=== PATIENT | male | born 1960 | race Caucasian/White ===

== ENCOUNTER → 2020-03-28 17:49 | Outpatient (BNVA) | payer BC, SELFPAY | DX: R05 Cough (principal); J44.1 Chronic obstructive pulmonary disease with (acute) exacerbation | CPT/HCPCS: 87635 ==

== ENCOUNTER → 2020-06-21 08:33 | Outpatient (BNVA) | payer BC, SELFPAY | PROVIDERS: PCP Family Medicine; Visit Provider Urology | DX: N39.9 Disorder of urinary system, unspecified (principal); R33.9 Retention of urine, unspecified | CPT/HCPCS: 81003 ==

== ENCOUNTER → 2020-07-08 10:55 | Outpatient (BNVA) | payer BC, SELFPAY | PROVIDERS: PCP Family Medicine; Visit Provider Urology | DX: R33.9 Retention of urine, unspecified (principal) | CPT/HCPCS: 81003 ==

== ENCOUNTER 2023-11-22 07:49 | Emergency (ER) | payer BC, SELFPAY ==
[2023-11-22] VITALS (7 sets, daily range): BP systolic 130–179; BP diastolic 75–96; PULSE 56–66; RESP 14–18; TEMP 36.8; O2SAT 96–99; BMI 20.7
--- NOTE | 2023-11-22 08:12 | ECG_ITS ---
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 Measurements Intervals [place] Rate: 59 P: 48 [place]: 119 QRS: 15 QRSD: 98 T: 89 QT: 441 QTc: 437 Interpretive Statements SINUS BRADYCARDIA WITH SHORT [place] INTERVAL MINIMAL ST DEPRESSION [0.025+ mV ST DEPRESSION] No previous ECG available for comparison Electronically Signed On 11-22-2023 11:15:16 CDT by Chi Jaeger M.D. [id number]
--- NOTE | 2023-11-22 08:12 | XRR_ITS ---
PROCEDURE INFORMATION: Exam: XR Chest Exam date and time: 11/22/2023 8:30 AM Age: 62 years old Clinical indication: Cough and dyspnea; Additional info: Dyspnea/cough TECHNIQUE: Imaging protocol: Radiologic exam of the chest. Views: 1 view. COMPARISON: No relevant prior studies available. FINDINGS: Lungs: Unremarkable. No consolidation. Pleural spaces: Unremarkable. No pleural effusion. No pneumothorax. Heart/Mediastinum: Unremarkable. No cardiomegaly. Bones/joints: Unremarkable. XR/XR chest 1V portable [id number] IMPRESSION: No acute findings.
--- NOTE | 2023-11-22 08:12 | CTR_ITS ---
PROCEDURE INFORMATION: Exam: CT Abdomen And Pelvis With Contrast Exam date and time: 11/22/2023 10:04 AM Age: 62 years old Clinical indication: Abdominal pain; Localized; Lower; Additional info: Abd pain TECHNIQUE: Imaging protocol: Computed tomography of the abdomen and pelvis with contrast. Radiation optimization: All CT scans at this facility use at least one of these dose optimization techniques: automated exposure control; mA and/or kV adjustment per patient size (includes targeted exams where dose is matched to clinical indication); or iterative reconstruction. Contrast material: [id number]; Contrast volume: 100 ml; Contrast route: INTRAVENOUS (IV); COMPARISON: US renal BI with PV bladder 05/13/2020 10:47 AM RADIATION DOSE METRICS: Total DLP (mGy-cm): 330 FINDINGS: Liver: Normal. No mass. Gallbladder and biliary ducts: Normal. No calcified stones. No ductal dilation. Pancreas: Normal. No ductal dilation. Spleen: Normal. No splenomegaly. Adrenal glands: Normal. No mass. Kidneys and ureters: Bilateral pelvocaliectasis, left greater than right. There is mild prominence to the proximal left ureter. The urothelium of each renal pelvis in the proximal left ureter is slightly thickened and enhances slightly suggesting infection. Correlate clinically. Minimally heterogeneous enhancement of the kidneys, correlate clinically for pyelonephritis. Stomach and bowel: Unremarkable. No obstruction. No mucosal thickening. Appendix: No evidence of appendicitis. Intraperitoneal space: Unremarkable. No free air. No significant fluid collection. Vasculature: Unremarkable. No abdominal aortic aneurysm. Lymph nodes: Unremarkable. No enlarged lymph nodes. Urinary bladder: The urinary bladder is collapsed around a Garces catheter. Reproductive: Unremarkable as visualized. Bones/joints: Unremarkable. No acute fracture. Soft tissues: Unremarkable. CT/CT abdomen pelvis w con* [id number] IMPRESSION: Bilateral pelvocaliectasis, left greater than right with secondary findings suggesting infection.
--- NOTE | 2023-11-22 08:12 | W.ED.BACK ---
HPI - Back Pain/Injury General: Chief Complaint: Back Pain/Injury Stated Complaint: low back pains, abd pain, urine problems Time Seen by Provider: 11/22/23 07:56 History of Present Illness: 60-year-old male presents emergency room with low back pain and unexplained weight loss. Patient has had problems with BPH and is supposed to self cath he has not been doing as much recently. He has had increasing back pain with hematuria for the last few days. No fever sweats or chills no hematochezia no vomiting. Denies chest pain or shortness of breath no hemoptysis. He states he has actually been eating regularly he is not having early satiety. Associated symptoms: Reports hematuria; Deny abdominal pain, chills, dysuria, fever(s) or urinary urgency Related Data Home Medications Medication Instructions Recorded Confirmed naproxen sodium 220 mg tablet See Rx Instructions .Route 11/22/23 11/22/23 (Aleve) .COMPLEX PRN Pain Previous Rx's Medication Instructions Recorded ciprofloxacin HCl 500 mg tablet 500 mg PO BID #20 tabs 11/22/23 (Cipro) Allergies Allergy/AdvReac Type Severity Reaction Status Date / Time Penicillins Allergy ALGY-Rash Verified 07/08/20 10:45 Review of Systems Const: Denies: fever(s) or chills Card: Denies: chest pain Resp: Denies: dyspnea GI: Denies: abdominal pain : Reports: flank pain, difficulty urinating, urinary dribbling and hematuria; Denies: dysuria, urinary frequency or urinary urgency Musc: Denies: neck pain or back pain Skin/Breast: Denies: rash PFSH ED PFSH: Medical History Urinary frequency Urinary retention Surgical History Hx of tonsillectomy Family History Mother , at 64 Lung cancer Father , at 62 Chronic kidney disease (CKD) Cancer Social History Smoking and tobacco/nicotine status: current every day tobacco/nicotine user Alcohol intake: current Alcohol type: beer Substance/Drug Use: never Marital status: Current occupational status: employed Physical Exam Const: COMMON NORMALS: no acute distress GENERAL APPEARANCE: cooperative and comfortable ORIENTATION/CONSCIOUSNESS: Yes awake, Yes oriented to person, Yes oriented to place and Yes oriented to time HENMT: COMMON NORMALS: normocephalic, atraumatic and hearing grossly normal bilaterally HEAD & SCALP: normocephalic and atraumatic Resp: COMMON NORMALS: normal respiratory effort, No retractions, No use of accessory muscles and clear to auscultation bilaterally AUSCULTATION: clear to auscultation bilaterally Cardio: COMMON NORMALS: regular rate, regular rhythm and No murmurs present (Cardio) RATE: regular rate RHYTHM: regular rhythm GI: COMMON NORMALS: Soft to palpation and No hepatosplenomegaly present AUSCULTATION: Yes normoactive bowel sounds PALPATION: Yes Soft to palpation, No Tenderness to palpation present (GI), No Guarding due to palpation present (GI) and Yes No hepatosplenomegaly present Extremity: COMMON NORMALS: normal to inspection, capillary refill normal, no clubbing, cyanosis or edema, no calf tenderness and no pedal edema Neuro: SENSORIUM/ORIENTATION: Yes oriented to person, Yes oriented to place and Yes oriented to time Skin: COMMON NORMALS: no rashes or lesions noted GENERAL SKIN EXAM: no rashes or lesions noted Course Vital Signs: Vital signs: Vital Signs Temperature 98.3 F 11/22/23 07:58 Pulse Rate 58 L 11/22/23 11:54 Respiratory Rate 14 11/22/23 11:54 Blood Pressure 130/75 11/22/23 11:54 Pulse Oximetry 97 11/22/23 11:54 Oxygen Delivery Me thod Room Air 11/22/23 10:40 MDM - Back Pain/Injury Medical Decision Making Urinary retention with signs of cystitis. Patient also has signs of mild pyelonephritis clinically and on imaging. Recommended observation for IV antibiotics. Patient prefers to go home he states he is feeling much better after his catheter was placed and his bladder was drained. Will discharge home on Cipro. Will make arrangements for him to follow-up with urology. She also should follow-up with primary care regarding his unexplained weight loss he will need further evaluation for this Medical Records I reviewed the patient's medical records. Labs I reviewed the patient's lab results. 11/22/23 08:26 11/22/23 09:14 Radiology Impressions Abdomen/Pelvis CT 11/22/23 08:12 IMPRESSION: Bilateral pelvocaliectasis, left greater than right with secondary findings suggesting infection. Chest X-Ray 11/22/23 08:12 IMPRESSION: No acute findings. Laboratory Results WBC 9.55 10^3/uL (3.29-11.43) 11/22/23 08:26 RBC 5.03 10^6/uL (3.85-5.65) 11/22/23 08:26 Hgb 14.40 g/dL (11.27-16.99) 11/22/23 08:26 Hct 42.8 % (37-53) 11/22/23 08:26 MCV 85.1 fl (82-101) 11/22/23 08:26 MCH 28.6 pg (27-33) 11/22/23 08:26 MCHC 33.6 g/dL (30-55) 11/22/23 08:26 RDW 17.2 % (12.1-15.1) H 11/22/23 08:26 Plt Count 231 10^3/cmm (157-399) 11/22/23 08:26 MPV 12.2 fL (7.4-10.4) H 11/22/23 08:26 Neut % (Auto) 70.3 % 11/22/23 08:26 Lymph % (Auto) 16.3 % 11/22/23 08:26 [place] % (Auto) 8.8 % 11/22/23 08:26 Eos % (Auto) 3.2 % 11/22/23 08:26 Baso % (Auto) 0.9 % 11/22/23 08:26 Neut # (Auto) 6.70 10^3/uL (1.8-7.7) 11/22/23 08:26 Lymph # (Auto) 1.6 10^3/uL (0.8-4.8) 11/22/23 08:26 [place] # (Auto) 0.8 10^3/uL (0.2-0.9) 11/22/23 08:26 Eos # (Auto) 0.3 10^3/uL (0.0-0.8) 11/22/23 08:26 Baso # (Auto) 0.1 10^3/uL (0.0-0.1) 11/22/23 08:26 Nucleated RBC % (auto) 0 % 11/22/23 08:26 Nucleated RBCs # 0.0 /100WBC 11/22/23 08:26 Sodium 139 mmol/L (136-145) 11/22/23 09:14 Potassium 5.0 mmol/L (3.5-5.1) 11/22/23 09:14 Chloride 105 mmol/L (98-107) 11/22/23 09:14 Carbon Dioxide 26 mmol/L (22-29) 11/22/23 09:14 Anion Gap 13.0 (5-19) 11/22/23 09:14 BUN 15 mg/dL (8-23) 11/22/23 09:14 Creatinine 1.0 mg/dL (0.7-1.2) 11/22/23 09:14 GFR Calculation 75.7 mL/min (90-130) L 11/22/23 09:14 Glucose 101 mg/dL (65-115) 11/22/23 09:14 Calculated Osmolality 289 mOsm/kg (285-295) 11/22/23 09:14 Lactic Acid 0.8 mmol/L (0.5-2.2) 11/22/23 09:54 Calcium 8.7 mg/dL (8.5-10.5) 11/22/23 09:14 Total Bilirubin 0.3 mg/dL (0.15-1.2) 11/22/23 09:14 AST 14 U/L (0-40) 11/22/23 09:14 ALT 10 U/L (0-41) 11/22/23 09:14 Alkaline Phosphatase 75 U/L (40-130) 11/22/23 09:14 Creatine Kinase 78 U/L (39-308) 11/22/23 09:14 Total Protein 6.9 g/dL (6.6-8.7) 11/22/23 09:14 Albumin 3.8 g/dL (3.5-5.2) 11/22/23 09:14 Globulin 3.1 g/dL (1.3-4.6) 11/22/23 09:14 Lipase 26 U/L (13-60) 11/22/23 09:14 Urine Color Yellow (Yellow) 11/22/23 08:45 Urine Appearance Cloudy (CLEAR) A 11/22/23 08:45 Urine pH 8.5 (5-7) A 11/22/23 08:45 Ur Specific [place] 1.010 (1.005-1.030) 11/22/23 08:45 Urine Protein Trace (Negative) A 11/22/23 08:45 Urine Glucose (UA) Negative (Normal) 11/22/23 08:45 Urine Ketones Negative (Negative) 11/22/23 08:45 Urine Blood 3+ (Negative) A 11/22/23 08:45 Urine Nitrate Positive (Negative) A 11/22/23 08:45 Urine Bilirubin Negative (Negative) 11/22/23 08:45 Urine Urobilinogen 1.0 mg/dL (Negative) 11/22/23 08:45 Ur Leukocyte Esterase 3+ (Negative) A 11/22/23 08:45 Urine RBC >100 /hpf (0-2) H 11/22/23 08:45 Urine WBC >100 /hpf (0-5) H 11/22/23 08:45 Ur Squamous Epith Cells 0-5 /hpf (0-5) 11/22/23 08:45 Amorphous Sediment Not Reportable 11/22/23 08:45 Urine Bacteria 4+ /hpf (NONE) H 11/22/23 08:45 Hyaline Casts 2.46 /lpf 11/22/23 08:45 All radiology interpretation(s) finalized by discharge Discharge Plan Discharge Patient Disposition: Home Clinical Impression: Pyelonephritis, Acute urinary retention, Unexplained weight loss Condition: Stable Prescriptions: New Cipro 500 mg tablet 500 mg PO BID Qty: 20 0RF No Action Aleve 220 mg Tablet See Rx Instructions .ROUTE .COMPLEX PRN (Reason: Pain) Rx Instructions: Take 2 tablets by mouth in the morning and 1 tablet at bedtime Discharge Orders: Discharge ED (Routine); Ordered 11/22/23 Ordered By: Vance Padilla Referrals: Naresh Moreira MD [Primary Care Provider] - Discharge Diet: Usual diet Discharge Activity: Resume usual activity Patient Instructions: Opioid Safety, Pain Management Activity Restrictions/Additional Instructions: Thank you for choosing [facility] for your healthcare needs today. It is very important that you follow up as instructed or that you return to the Emergency Department should you have concerns or if your condition changes or worsens in any way. You were seen emergency room with complaints of abdominal discomfort. On exam you are found to have a urinary retention. Garces catheter was placed which will need to stay in place for at least a week. You are also noted to have a bladder infection. Will start you on oral antibiotics 1 pill twice a day for 10 days. Case management make arrangements for you to follow-up with a urologist. 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
[2023-11-22 08:39] LABS: Basophils # 0.1 10^3/uL (0.0-0.1); Basophils % 0.9 %; Eosinophils # 0.3 10^3/uL (0.0-0.8); Eosinophils % 3.2 %; Hematocrit 42.8 % (37-53); Lymphocytes # 1.6 10^3/uL (0.8-4.8); Lymphocytes % 16.3 %; Mean Corpuscular HGB Conc 33.6 g/dL (30-55); Mean Corpuscular Hemoglobin 28.6 pg (27-33); Mean Corpuscular Volume 85.1 fl (82-101); Mean Platelet Volume 12.2 fL (7.4-10.4); Monocytes # 0.8 10^3/uL (0.2-0.9); Monocytes % 8.8 %; Neutrophils % 70.3 %; Nucleated Red Blood Cells % 0 %; Platelet Count 231 10^3/cmm (157-399); Red Blood Count 5.03 10^6/uL (3.85-5.65); Red Cell Distribution Width 17.2 % (12.1-15.1); White Blood Count 9.55 10^3/uL (3.29-11.43)
[2023-11-22] MEDS: sodium chloride 0.9% 1,000 ML 999 ML IV (08:52)
[2023-11-22 09:00] LABS: Charge for UA Resulting for Rev
[2023-11-22 09:05] LABS: Bilirubin Urine Negative (Negative); Blood Urine 3+ (Negative); Glucose Urine UA Negative (Normal); Ketones Urine Negative (Negative); Leukocyte Esterase Urine 3+ (Negative); Nitrate Urine Positive (Negative); Protein Urine Trace (Negative); Urine Appearance Cloudy (CLEAR); Urine Color Yellow (Yellow); pH Urine 8.5 (5-7)
[2023-11-22 09:09] LABS: Bacteria Urine 4+ /hpf; Hyaline Casts Urine 2.46 /lpf; RBC Urine >100 /hpf (0-2); Squamous Epithelial Cell Urine 0-5 /hpf (0-5); WBC Urine >100 /hpf (0-5)
[2023-11-22 09:23] LABS: Add Urine Culture? Yes
[2023-11-22 09:46] LABS: Alanine Aminotransferase 10 U/L (0-41); Albumin Level 3.8 g/dL (3.5-5.2); Alkaline Phosphatase 75 U/L (40-130); Aspartate Amino Transferase 14 U/L (0-40); Blood Urea Nitrogen 15 mg/dL (8-23); Calcium 8.7 mg/dL (8.5-10.5); Carbon Dioxide 26 mmol/L (22-29); Chloride 105 mmol/L (98-107); Creatine Phosphokinase 78 U/L (39-308); Creatinine Clr Calc Pharmacy 75.9508; Globulin 3.1 g/dL (1.3-4.6); Glomerular Filtration Rate 75.7 mL/min (90-130); Glucose 101 mg/dL (65-115); Lipase 26 U/L (13-60); Osmolality Calculated 289 mOsm/kg (285-295); Sodium 139 mmol/L (136-145); Total Bilirubin 0.3 mg/dL (0.15-1.2); Total Protein 6.9 g/dL (6.6-8.7)
[2023-11-22] MEDS: iohexol 350 mg/mL 500 mL Btl (per mL) IV (10:09)
[2023-11-22 10:27] LABS: Lactic Sepsis W/Reflex 0.8 mmol/L (0.5-2.2)
[2023-11-22] MEDS: meropenem 1,000 mg SDV 1000 MG IVP (10:36)
--- NOTE | 2023-11-22 11:12 | PC.NURSE ---
this nurse assumed pt care at 1100.
--- NOTE | 2023-11-22 11:55 | PC.NURSE ---
leg bag placed on patient prior to discharge.
== END 2023-11-22 11:44 | disposition home or self-care (01) ==
PROVIDERS: Emergency Provider Family Medicine; PCP Family Medicine
DX: N12 Tubulo-interstitial nephritis, not specified as acute or chronic (principal); R33.9 Retention of urine, unspecified; R63.4 Abnormal weight loss; Z68.20 Body mass index [BMI] 20.0-20.9, adult; Z71.0 Person encountering health services to consult on behalf of another person
CPT/HCPCS: 36415; 51702; 51798; 71045; 74177; 80053; 81003; 81015; 82550; 83605; 83690; 85025; 87040; 87086; 93005; 96361; 96374; 99285; J2185; J7030

== ENCOUNTER 2023-11-25 14:11 | Emergency (ER) | payer BC, SELFPAY ==
[2023-11-25 14:17] VITALS: BP 167/77; PULSE 87; RESP 18; TEMP 36.8; O2SAT 97; BMI 20.5
[2023-11-25 15:05] LABS: Basophils # 0.1 10^3/uL (0.0-0.1); Basophils % 0.6 %; Eosinophils # 0.7 10^3/uL (0.0-0.8); Eosinophils % 6.2 %; Hematocrit 45.6 % (37-53); Lymphocytes % 18.3 %; Mean Corpuscular HGB Conc 32.5 g/dL (30-55); Mean Corpuscular Hemoglobin 28.6 pg (27-33); Mean Platelet Volume 10.2 fL (7.4-10.4); Monocytes # 0.9 10^3/uL (0.2-0.9); Monocytes % 8.1 %; Neutrophils # 7.17 10^3/uL (1.8-7.7); Nucleated Red Blood Cells % 0 %; Platelet Count 334 10^3/cmm (157-399); Red Blood Count 5.18 10^6/uL (3.85-5.65); Red Cell Distribution Width 13.2 % (12.1-15.1); White Blood Count 10.87 10^3/uL (3.29-11.43)
[2023-11-25 15:24] LABS: Alanine Aminotransferase 12 U/L (0-41); Albumin Level 4.2 g/dL (3.5-5.2); Alkaline Phosphatase 79 U/L (40-130); Anion Gap 15.7 (5-19); Aspartate Amino Transferase 14 U/L (0-40); Blood Urea Nitrogen 13 mg/dL (8-23); Calcium 9.4 mg/dL (8.5-10.5); Carbon Dioxide 27 mmol/L (22-29); Chloride 100 mmol/L (98-107); Globulin 3.5 g/dL (1.3-4.6); Glomerular Filtration Rate 61.3 mL/min (90-130); Glucose 107 mg/dL (65-115); Lipase 32 U/L (13-60); Osmolality Calculated 287 mOsm/kg (285-295); Potassium 4.7 mmol/L (3.5-5.1); Sodium 138 mmol/L (136-145); Total Bilirubin 0.2 mg/dL (0.15-1.2); Total Protein 7.7 g/dL (6.6-8.7)
[2023-11-25 16:51] VITALS: PULSE 81; O2SAT 97
--- NOTE | 2023-11-25 17:36 | ED_ITS ---
HPI - Male Genitourinary 2 General: Chief complaint: Urogenital-Male Stated complaint: catheter pain - catheter is red Time Seen by Provider: 11/25/23 17:29 History of Present Illness: 62-year-old male patient comes in today for complaints of urinary pain and blood in his urine. Patient had a Garces catheter placed 3 days ago for urinary retention. Patient was started on antibiotics but came back today due to some increased discomfort and also noticing the blood in his urine. Patient reports no fever or nausea or vomiting. Patient appears nontoxic. Related Data Home Medications Medication Instructions Recorded Confirmed naproxen sodium 220 mg tablet See Rx Instructions .Route 11/22/23 11/22/23 (Aleve) .COMPLEX PRN Pain Previous Rx's Medication Instructions Recorded ciprofloxacin HCl 500 mg tablet 500 mg PO BID #20 tabs 11/22/23 (Cipro) Allergies Allergy/AdvReac Type Severity Reaction Status Date / Time Penicillins Allergy ALGY-Rash Verified 11/25/23 14:21 Review of Systems 2 General: Reports: 10 or more systems reviewed and unremarkable except in HPI and below : Reports: other (Garces catheter problem) PFSH ED 2 PFSH: Medical History Urinary frequency Urinary retention Surgical History Hx of tonsillectomy Family History Mother , at 64 Lung cancer Father , at 62 Chronic kidney disease (CKD) Cancer Social History Smoking and tobacco/nicotine status: current every day tobacco/nicotine user Alcohol intake: current Alcohol type: beer Substance/Drug Use: never Marital status: Current occupational status: employed Physical Exam 2 Const: COMMON NORMALS: alert HENMT: COMMON NORMALS: normocephalic HEAD & SCALP: normocephalic MOUTH: Normal oral and palatal mucosa present Neck/C-Spine: COMMON NORMALS: full ROM Resp: COMMON NORMALS: normal respiratory effort Cardio: COMMON NORMALS: regular rate RATE: regular rate GI: COMMON NORMALS: non-tender : COMMON NORMALS: Yes no CVA tenderness BLADDER/KIDNEY EXAM: Yes no CVA tenderness Back/Pelvis: COMMON NORMALS: no CVA tenderness Extremity: COMMON NORMALS: no pedal edema Neuro: SENSORIUM/ORIENTATION: Yes alert Skin: COMMON NORMALS: turgor normal GENERAL SKIN EXAM: turgor normal Course 2 Vital Signs: Vital signs: Vital Signs Temperature 98.2 F 11/25/23 14:17 Pulse Rate 87 11/25/23 14:17 Respiratory Rate 18 11/25/23 14:17 Blood Pressure 167/77 11/25/23 14:17 Pulse Oximetry 97 11/25/23 14:17 Oxygen Delivery Me thod Room Air 11/25/23 14:17 MDM - Male Medical Decision Making 62-year-old male patient comes in today for concerns of blood in his urine and pelvic pain. On exam patient has a tea-colored urine in his Garces catheter bag. After draining the [place] catheter bag patient drained clear fluid. Urine was collected and sent to lab. Vital signs are normal. Abdomen soft nontender. No CVA tenderness. Differential diagnosis includes urinary tract infection, cystitis, urethritis, dysfunctional Garces catheter. CBC and CMP were unremarkable. Urinalysis is unremarkable with significant improvement from prior exam. Patient reported pain relief prior to discharge. Patient was discharged home with recommendations for further treatment and follow-up. Lab Data 11/25/23 14:58 11/25/23 14:58 Laboratory Results WBC 10.87 10^3/uL (3.29-11.43) 11/25/23 14:58 RBC 5.18 10^6/uL (3.85-5.65) 11/25/23 14:58 Hgb 14.80 g/dL (11.27-16.99) 11/25/23 14:58 Hct 45.6 % (37-53) 11/25/23 14:58 MCV 88.0 fl (82-101) 11/25/23 14:58 MCH 28.6 pg (27-33) 11/25/23 14:58 MCHC 32.5 g/dL (30-55) 11/25/23 14:58 RDW 13.2 % (12.1-15.1) 11/25/23 14:58 Plt Count 334 10^3/cmm (157-399) 11/25/23 14:58 MPV 10.2 fL (7.4-10.4) 11/25/23 14:58 Neut % (Auto) 66.0 % 11/25/23 14:58 Lymph % (Auto) 18.3 % 11/25/23 14:58 [place] % (Auto) 8.1 % 11/25/23 14:58 Eos % (Auto) 6.2 % 11/25/23 14:58 Baso % (Auto) 0.6 % 11/25/23 14:58 Neut # (Auto) 7.17 10^3/uL (1.8-7.7) 11/25/23 14:58 Lymph # (Auto) 2.0 10^3/uL (0.8-4.8) 11/25/23 14:58 [place] # (Auto) 0.9 10^3/uL (0.2-0.9) 11/25/23 14:58 Eos # (Auto) 0.7 10^3/uL (0.0-0.8) 11/25/23 14:58 Baso # (Auto) 0.1 10^3/uL (0.0-0.1) 11/25/23 14:58 Nucleated RBC % (auto) 0 % 11/25/23 14:58 Nucleated RBCs # 0.0 /100WBC 11/25/23 14:58 Sodium 138 mmol/L (136-145) 11/25/23 14:58 Potassium 4.7 mmol/L (3.5-5.1) 11/25/23 14:58 Chloride 100 mmol/L (98-107) 11/25/23 14:58 Carbon Dioxide 27 mmol/L (22-29) 11/25/23 14:58 Anion Gap 15.7 (5-19) 11/25/23 14:58 BUN 13 mg/dL (8-23) 11/25/23 14:58 Creatinine 1.2 mg/dL (0.7-1.2) 11/25/23 14:58 GFR Calculation 61.3 mL/min (90-130) L 11/25/23 14:58 Glucose 107 mg/dL (65-115) 11/25/23 14:58 Calculated Osmolality 287 mOsm/kg (285-295) 11/25/23 14:58 Calcium 9.4 mg/dL (8.5-10.5) 11/25/23 14:58 Total Bilirubin 0.2 mg/dL (0.15-1.2) 11/25/23 14:58 AST 14 U/L (0-40) 11/25/23 14:58 ALT 12 U/L (0-41) 11/25/23 14:58 Alkaline Phosphatase 79 U/L (40-130) 11/25/23 14:58 Total Protein 7.7 g/dL (6.6-8.7) 11/25/23 14:58 Albumin 4.2 g/dL (3.5-5.2) 11/25/23 14:58 Globulin 3.5 g/dL (1.3-4.6) 11/25/23 14:58 Lipase 32 U/L (13-60) 11/25/23 14:58 Urine Color Yellow (Yellow) 11/25/23 17:37 Urine Appearance Cloudy (CLEAR) A 11/25/23 17:37 Urine pH 6.5 (5-7) 11/25/23 17:37 Ur Specific [place] 1.004 (1.005-1.030) L 11/25/23 17:37 Urine Protein Trace (Negative) A 11/25/23 17:37 Urine Glucose (UA) Negative (Normal) 11/25/23 17:37 Urine Ketones Negative (Negative) 11/25/23 17:37 Urine Blood 3+ (Negative) A 11/25/23 17:37 Urine Nitrate Negative (Negative) 11/25/23 17:37 Urine Bilirubin Negative (Negative) 11/25/23 17:37 Urine Urobilinogen 0.2 mg/dL (Negative) 11/25/23 17:37 Ur Leukocyte Esterase 1+ (Negative) A 11/25/23 17:37 Urine RBC 0-2 /hpf (0-2) 11/25/23 17:37 Urine WBC 0-5 /hpf (0-5) 11/25/23 17:37 Ur Squamous Epith Cells 0-5 /hpf (0-5) 11/25/23 17:37 Amorphous Sediment Not Reportable 11/25/23 17:37 Urine Bacteria None seen /hpf (NONE) 11/25/23 17:37 Hyaline Casts 0-4 /lpf H 09/12/24 17:37 No radiology studies performed this visit Discharge Plan Discharge Patient Disposition: Home Clinical Impression: Complication of Garces catheter Qualifiers: Encounter type: initial encounter Qualified Code(s): T83.9XXA - Unspecified complication of genitourinary prosthetic device, implant and graft, initial encounter Condition: Stable Prescriptions: No Action Aleve 220 mg Tablet See Rx Instructions .ROUTE .COMPLEX PRN (Reason: Pain) Rx Instructions: Take 2 tablets by mouth in the morning and 1 tablet at bedtime Cipro 500 mg tablet 500 mg PO BID Qty: 20 0RF Discharge Orders: Discharge ED (Routine); Ordered 11/25/23 Ordered By: Scar Cummings Referrals: Naresh Moreira MD [Primary Care Provider] - Discharge Diet: Usual diet Discharge Activity: Increase activity as tolerated Patient Instructions: Garces Catheter Placement and Care (ED) Activity Restrictions/Additional Instructions: Avoid any pulling or traction on the Garces catheter as it may cause bleeding of the bladder or prostate. Make sure to drink plenty of water and fluids. Follow-up with primary care or urology for further recommendations. Return to ED for new concerns. Coding Level of Care Code ED Robot Programmer for Odalys Espinosa
[2023-11-25 17:48] LABS: Bilirubin Urine Negative (Negative); Blood Urine 3+ (Negative); Glucose Urine UA Negative (Normal); Ketones Urine Negative (Negative); Leukocyte Esterase Urine 1+ (Negative); Nitrate Urine Negative (Negative); Protein Urine Trace (Negative); Specific Gravity, Urine 1.004 (1.005-1.030); Urine Appearance Cloudy (CLEAR); Urine Color Yellow (Yellow); Urobilinogen Urine 0.2 mg/dL (Negative); pH Urine 6.5 (5-7)
[2023-11-25 17:52] LABS: Add Urine Microscopic? YES; Bacteria Urine None Seen /hpf; Hyaline Casts Urine 0-4 /lpf; RBC Urine 0-2 /hpf (0-2); Squamous Epithelial Cell Urine 0-5 /hpf (0-5); WBC Urine 0-5 /hpf (0-5)
[2023-11-25 17:58] LABS: Add Urine Culture? Yes
[2023-11-25 18:37] VITALS: BP 143/83; PULSE 77; O2SAT 98
== END 2023-11-25 18:39 | disposition home or self-care (01) ==
PROVIDERS: Emergency Medicine; Emergency Provider Nurse Practitioner Family; PCP Family Medicine
DX: T83.9XXA Unspecified complication of genitourinary prosthetic device, implant and graft, initial encounter (principal); Z72.0 Tobacco use
CPT/HCPCS: 36415; 80053; 81001; 83690; 85025; 87086; 99283

== ENCOUNTER 2023-12-14 07:32 | Emergency (ER) | payer BC, SELFPAY ==
[2023-12-14 07:42] VITALS: BP 169/84; PULSE 93; RESP 18; TEMP 36.8; O2SAT 98; BMI 21.1
--- NOTE | 2023-12-14 07:51 | ED_ITS ---
HPI - Male Genitourinary 2 General: Chief complaint: Urogenital-Male Stated complaint: needs perry cathether removed Time Seen by Provider: 12/14/23 07:51 History of Present Illness: 60-year-old male presents emergency room as well as a catheter in place he has had it for 3 weeks the bag has been leaking some he is very frustrated he would like to have it added out by now. He did not get a follow-up with urology unfortunately. He was treated for cystitis he had follow-up shortly after that in the ER and his urine had cleared this is a few days after he was initially placed. He has not been taking any tamsulosin when he is completed his course of antibiotics denies fever sweats or chills his biggest complaint is he just wants the Perry out Associated symptoms: Deny dysuria Related Data Home Medications Medication Instructions Recorded Confirmed naproxen sodium 220 mg tablet See Rx Instructions .Route 11/22/23 12/14/23 (Aleve) .COMPLEX PRN Pain Previous Rx's Medication Instructions Recorded ciprofloxacin HCl 500 mg tablet 500 mg PO BID #14 tabs 12/14/23 (Cipro) tamsulosin 0.4 mg capsule 0.8 mg (2 x 0.4 mg) PO Q24H #60 12/14/23 caps Allergies Allergy/AdvReac Type Severity Reaction Status Date / Time Penicillins Allergy ALGY-Rash Verified 11/25/23 14:21 Review of Systems 2 Const: Denies: fever(s) or chills Card: Denies: chest pain Resp: Denies: dyspnea GI: Denies: abdominal pain : Denies: dysuria, urinary frequency or urinary urgency Musc: Denies: neck pain or back pain Skin/Breast: Denies: rash PFSH ED 2 PFSH: Medical History Urinary frequency Urinary retention Surgical History Hx of tonsillectomy Family History Mother , at 64 Lung cancer Father , at 62 Chronic kidney disease (CKD) Cancer Social History (Reviewed 11/22/23 @ 08:12 by MARCELA Borjas Smoking and tobacco/nicotine status: current every day tobacco/nicotine user Alcohol intake: current Alcohol type: beer Substance/Drug Use: never Marital status: Current occupational status: employed Physical Exam 2 Const: COMMON NORMALS: no acute distress GENERAL APPEARANCE: cooperative and comfortable ORIENTATION/CONSCIOUSNESS: Yes awake, Yes oriented to person, Yes oriented to place and Yes oriented to time HENMT: COMMON NORMALS: normocephalic, atraumatic and hearing grossly normal bilaterally HEAD & SCALP: normocephalic and atraumatic Resp: COMMON NORMALS: normal respiratory effort, No retractions, No use of accessory muscles and clear to auscultation bilaterally AUSCULTATION: clear to auscultation bilaterally Cardio: COMMON NORMALS: regular rate, regular rhythm and No murmurs present (Cardio) RATE: regular rate RHYTHM: regular rhythm GI: COMMON NORMALS: Soft to palpation and No hepatosplenomegaly present A USCULTATION: Yes normoactive bowel sounds PALPATION: Yes Soft to palpation, No Tenderness to palpation present (GI), No Guarding due to palpation present (GI) and Yes No hepatosplenomegaly present Extremity: COMMON NORMALS: normal to inspection, capillary refill normal, no clubbing, cyanosis or edema, no calf tenderness and no pedal edema Neuro: SENSORIUM/ORIENTATION: Yes oriented to person, Yes oriented to place and Yes oriented to time Skin: COMMON NORMALS: no rashes or lesions noted GENERAL SKIN EXAM: no rashes or lesions noted Course 2 Vital Signs: Vital signs: Vital Signs Temperature 98.3 F 12/14/23 07:42 Pulse Rate 64 12/14/23 11:43 Respiratory Rate 18 12/14/23 11:43 Blood Pressure 123/82 12/14/23 11:43 Pulse Oximetry 99 12/14/23 11:43 Oxygen Delivery Me thod Room Air 12/14/23 07:42 MDM - Male Medical Decision Making Patient quite frustrated. Removal to after some discussion, agreed to allow us to check a urine we checked her urine and removed his Perry monitored for time recheck he has 250 of retained urine if he cannot void at this time he does not feel the urge was not able to empty. Discussed with him the concerns we have about developing urinary retention again. He does not wish to stay any further he does not wish catheter back and advised him if he has not urinated at all by around 4:00's afternoon he should return to be reevaluated. We did start him on some oral antibiotics Cipro 500 twice daily for 7 days will start on tamsulosin 1.8 nightly patient reports that previously at 0.4 he did not have any good results. Encouraged him to establish with a primary care doctor and with have case management get him set up for urology. Medical Records I reviewed the patient's medical records. Lab Data I reviewed the patient's lab results. 12/14/23 08:27 12/14/23 08: Laboratory Results WBC 8.81 10^3/uL (3.29-11.43) 12/14/23 08: RBC 4.81 10^6/uL (3.85-5.65) 12/14/23 08: Hgb 13.70 g/dL (11.27-16.99) 12/14/23 08: Hct 41.8 % (37-53) 12/14/23 08: MCV 86.9 fl (82-101) 12/14/23 08: MCH 28.5 pg (27-33) 12/14/23 08: MCHC 32.8 g/dL (30-55) 12/14/23 08: RDW 13.3 % (12.1-15.1) 12/14/23 08: Plt Count 271 10^3/cmm (157-399) 12/14/23 08: MPV 10.6 fL (7.4-10.4) H 12/14/23 08: Neut % (Auto) 62.7 % 12/14/23 08: Lymph % (Auto) 22.2 % 12/14/23 08: [place] % (Auto) 9.5 % 12/14/23 08: Eos % (Auto) 4.3 % 12/14/23: Baso % (Auto) 0.7 % 12/14/23 08: Neut # (Auto) 5.52 10^3/uL (1.8-7.7) 12/14/23 08: Lymph # (Auto) 2.0 10^3/uL (0.8-4.8) 12/14/23 08:27 [place] # (Auto) 0.8 10^3/uL (0.2-0.9) 12/14/23 08:27 Eos # (Auto) 0.4 10^3/uL (0.0-0.8) 12/14/23 08:27 Baso # (Auto) 0.1 10^3/uL (0.0-0.1) 12/14/23 08:27 Nucleated RBC % (auto) 0 % 12/14/23 08: Nucleated RBCs # 0.0 /100WBC 12/14/23 08:27 Sodium 140 mmol/L (136-145) 12/14/23 08:27 Potassium 4.3 mmol/L (3.5-5.1) 12/14/23 08:27 Chloride 104 mmol/L (98-107) 12/14/23 08:27 Carbon Dioxide 26 mmol/L (22-29) 12/14/23 08:27 Anion Gap 14.3 (5-19) 12/14/23 08:27 BUN 16 mg/dL (8-23) 12/14/23 08:27 Creatinine 1.0 mg/dL (0.7-1.2) 12/14/23 08:27 GFR Calculation 75.7 mL/min (90-130) L 12/14/23 08:27 Glucose 110 mg/dL (65-115) 12/14/23 08:27 Calculated Osmolality 292 mOsm/kg (285-295) 12/14/23 08:27 Calcium 9.0 mg/dL (8.5-10.5) 12/14/23 08:27 Total Bilirubin 0.3 mg/dL (0.15-1.2) 12/14/23 08:27 AST 17 U/L (0-40) 12/14/23 08:27 ALT 14 U/L (0-41) 12/14/23 08:27 Alkaline Phosphatase 76 U/L (40-130) 12/14/23 08:27 Total Protein 7.6 g/dL (6.6-8.7) 12/14/23 08:27 Albumin 4.2 g/dL (3.5-5.2) 12/14/23 08:27 Globulin 3.4 g/dL (1.3-4.6) 12/14/23 08:27 Urine Color Yellow (Yellow) 12/14/23 09:01 Urine Appearance Clear (CLEAR) 12/14/23 09:01 Urine pH 5.5 (5-7) 12/14/23 09:01 Ur Specific [place] 1.017 (1.005-1.030) 12/14/23 09:01 Urine Protein 1+ (Negative) A 12/14/23 09:01 Urine Glucose (UA) Negative (Normal) 12/14/23 09: Urine Ketones Negative (Negative) 12/14/23 09: Urine Blood 3+ (Negative) A 12/14/23 09: Urine Nitrate Positive (Negative) A 12/14/23 09: Urine Bilirubin Negative (Negative) 12/14/23 09: Urine Urobilinogen 1.0 mg/dL (Negative) 12/14/23 09:01 Ur Leukocyte Esterase 2+ (Negative) A 12/14/23 09: Urine RBC 15-25 /hpf (0-2) H 12/14/23 09:01 Urine WBC 15-25 /hpf (0-5) H 12/14/23 09:01 Ur Squamous Epith Cells 0-4 /hpf (0-5) H 12/14/23 09:01 Amorphous Sediment Not Reportable 12/14/23 09:01 Urine Bacteria 3+ /hpf (NONE) H 12/14/23 09:01 Urine Mucus 1+ /hpf 12/14/23 09:01 No radiology studies performed this visit Discharge Plan Discharge Patient Disposition: Home Clinical Impression: Urinary tract infection Condition: Stable Prescriptions: New ciprofloxacin HCl [Cipro] 500 mg tablet 500 mg PO BID Qty: 14 0RF tamsulosin 0.4 mg capsule 0.8 mg PO Q24H Qty: 60 0RF No Action naproxen sodium [Aleve] 220 mg Tablet See Rx Instructions .ROUTE .COMPLEX PRN (Reason: Pain) Rx Instructions: Take 2 tablets by mouth in the morning and 1 tablet at bedtime Discharge Orders: Discharge ED (Routine); Ordered 12/14/23 Ordered By: Vance Padilla Discharge Diet: Usual diet Discharge Activity: Increase activity as tolerated Patient Instructions: Urinary Tract Infection in Men (ED), Opioid Safety, Pain Management Activity Restrictions/Additional Instructions: Thank you for choosing [facility] for your healthcare needs today. It is very important that you follow up as instructed or that you return to the Emergency Department should you have concerns or if your condition changes or worsens in any way. After removing the catheter in the ER we monitored you for a time and you did have retention of around 250 mL of urine. If you have not been able to urinate by 3-4 o'clock's afternoon she should return to the emergency room to have a Perry catheter placed. In addition to this you were noted to have a bladder infection for which she was given ciprofloxacin 1 tablet twice a day for. Case management make arrangements for you to see a physician regarding your bladder issues. Coding Level of Care Code ED Service Developer for Odalys Espinosa
[2023-12-14 08:35] LABS: Basophils # 0.1 10^3/uL (0.0-0.1); Basophils % 0.7 %; Eosinophils # 0.4 10^3/uL (0.0-0.8); Eosinophils % 4.3 %; Hematocrit 41.8 % (37-53); Lymphocytes % 22.2 %; Mean Corpuscular HGB Conc 32.8 g/dL (30-55); Mean Corpuscular Hemoglobin 28.5 pg (27-33); Mean Corpuscular Volume 86.9 fl (82-101); Mean Platelet Volume 10.6 fL (7.4-10.4); Monocytes # 0.8 10^3/uL (0.2-0.9); Monocytes % 9.5 %; Neutrophils # 5.52 10^3/uL (1.8-7.7); Neutrophils % 62.7 %; Nucleated Red Blood Cells % 0 %; Platelet Count 271 10^3/cmm (157-399); Red Blood Count 4.81 10^6/uL (3.85-5.65); Red Cell Distribution Width 13.3 % (12.1-15.1); White Blood Count 8.81 10^3/uL (3.29-11.43)
[2023-12-14 08:53] LABS: Alanine Aminotransferase 14 U/L (0-41); Albumin Level 4.2 g/dL (3.5-5.2); Alkaline Phosphatase 76 U/L (40-130); Anion Gap 14.3 (5-19); Aspartate Amino Transferase 17 U/L (0-40); Blood Urea Nitrogen 16 mg/dL (8-23); Carbon Dioxide 26 mmol/L (22-29); Chloride 104 mmol/L (98-107); Creatinine Clr Calc Pharmacy 76.3438; Globulin 3.4 g/dL (1.3-4.6); Glomerular Filtration Rate 75.7 mL/min (90-130); Glucose 110 mg/dL (65-115); Osmolality Calculated 292 mOsm/kg (285-295); Potassium 4.3 mmol/L (3.5-5.1); Sodium 140 mmol/L (136-145); Total Bilirubin 0.3 mg/dL (0.15-1.2); Total Protein 7.6 g/dL (6.6-8.7)
[2023-12-14 09:12] LABS: Bilirubin Urine Negative (Negative); Blood Urine 3+ (Negative); Glucose Urine UA Negative (Normal); Ketones Urine Negative (Negative); Leukocyte Esterase Urine 2+ (Negative); Nitrate Urine Positive (Negative); Protein Urine 1+ (Negative); Specific Gravity, Urine 1.017 (1.005-1.030); Urine Appearance Clear (CLEAR); Urine Color Yellow (Yellow); pH Urine 5.5 (5-7)
[2023-12-14 09:38] LABS: UA Manual Slide Review YES; UA Slide Review UA Slide Review Perf
[2023-12-14 09:40] LABS: Add Urine Culture? Yes; Add Urine Microscopic? YES; Bacteria Urine 3+ /hpf; Mucus Urine 1+ /hpf; RBC Urine 15-25 /hpf (0-2); Squamous Epithelial Cell Urine 0-4 /hpf (0-5); WBC Urine 15-25 /hpf (0-5)
[2023-12-14 11:43] VITALS: BP 123/82; PULSE 64; RESP 18; O2SAT 99
--- NOTE | 2023-12-16 08:14 | DCPLANNER ---
faxed packet to [facility]
== END 2023-12-14 11:59 | disposition home or self-care (01) ==
PROVIDERS: Emergency Provider Family Medicine
DX: N39.0 Urinary tract infection, site not specified (principal)
CPT/HCPCS: 80053; 81001; 85025; 87077; 87086; 87186; 99283

== ENCOUNTER 2023-12-14 16:57 | Emergency (ER) | payer BC, SELFPAY ==
[2023-12-14 16:59] VITALS: BP 128/81; PULSE 100; RESP 15; TEMP 36.6; O2SAT 98; BMI 21.1
--- NOTE | 2023-12-14 17:38 | ED_ITS ---
HPI - Male Genitourinary General: Chief complaint: Urogenital-Male Stated complaint: unable to urinate Time Seen by Provider: 12/14/23 17:10 Source: patient Mode of arrival: ambulatory Limitations: no limitations History of Present Illness: 62-year-old male who was seen here [facility] today he had had urinary retention and had a Garces catheter removed and did not want placement states that since he has been home he has not been able to urinate at all and is having suprapubic tenderness. Denies any fever denies any other complaints Associated symptoms: Deny dysuria, nausea or vomiting Related Data Home Medications Medication Instructions Recorded Confirmed naproxen sodium 220 mg tablet See Rx Instructions .Route 11/22/23 12/14/23 (Aleve) .COMPLEX PRN Pain Previous Rx's Medication Instructions Recorded ciprofloxacin HCl 500 mg tablet 500 mg PO BID #14 tabs 12/14/23 (Cipro) tamsulosin 0.4 mg capsule 0.8 mg (2 x 0.4 mg) PO Q24H #60 12/14/23 caps Allergies Allergy/AdvReac Type Severity Reaction Status Date / Time Penicillins Allergy ALGY-Rash Verified 11/25/23 14:21 Review of Systems Const: Denies: fever(s), chills, body aches or change in appetite ENMT: Denies: throat pain or dental pain Card: Denies: chest pain Resp: Denies: dyspnea GI: Reports: abdominal pain; Denies: nausea, vomiting or diarrhea : Reports: difficulty urinating; Denies: dysuria Musc: Denies: neck pain or back pain Skin/Breast: Denies: rash Neuro: Denies: headache(s) PFSH ED PFSH: Medical History Urinary frequency Urinary retention Surgical History Hx of tonsillectomy Family History Mother , at 64 Lung cancer Father , at 62 Chronic kidney disease (CKD) Cancer Social History Smoking and tobacco/nicotine status: current every day tobacco/nicotine user Alcohol intake: current Alcohol type: beer Substance/Drug Use: never Marital status: Current occupational status: employed Physical Exam Const: COMMON NORMALS: no acute distress, patient oriented x3 and healthy appearing HENMT: COMMON NORMALS: normocephalic and atraumatic HEAD & SCALP: normocephalic and atraumatic Eye: COMMON NORMALS: Equal, round and reactive pupils present and EOMs intact bilaterally PUPIL: Yes Equal, round and reactive pupils present Neck/C-Spine: COMMON NORMALS: full ROM and supple Chest: COMMONS NORMALS: normal inspection of the chest Resp: COMMON NORMALS: normal respiratory effort Cardio: COMMON NORMALS: regular rate, regular rhythm and No murmurs present (Cardio) RATE: regular rate RHYTHM: regular rhythm GI: COMMON NORMALS: Normal to inspection, nondistended, normoactive bowel sounds present, Soft to palpation and no masses PALPATION: Yes Soft to palpation OTHER: Suprapubic tenderness Extremity: COMMON NORMALS: normal to inspection and full ROM Neuro: COMMON NORMALS: patient oriented x3, moves all extremities and no focal motor deficits Psych: COMMON NORMALS: mental status grossly normal, Normal thought process present and cooperative THOUGHT PROCESS: Normal thought process present Skin: COMMON NORMALS: no rashes or lesions noted and no wounds GENERAL SKIN EXAM: no rashes or lesions noted Course Vital Signs: Vital signs: Vital Signs Temperature 97.8 F 12/14/23 16:59 Pulse Rate 100 12/14/23 16:59 Respiratory Rate 15 12/14/23 16:59 Blood Pressure 128/81 12/14/23 16:59 Pulse Oximetry 98 12/14/23 16:59 Oxygen Delivery Me thod Room Air 12/14/23 16:59 MDM - Male Medical Decision Making Patient presents here with urinary retention he did have a large amount after the Garces placed will leave the Garces in with leg bag he has follow-up with urology Medical Records I reviewed the patient's medical records. No radiology studies performed this visit Discharge Plan Discharge Patient Disposition: Home Clinical Impression: Urinary retention Condition: Stable Prescriptions: No Action ciprofloxacin HCl [Cipro] 500 mg tablet 500 mg PO BID Qty: 14 0RF tamsulosin 0.4 mg capsule 0.8 mg PO Q24H Qty: 60 0RF naproxen sodium [Aleve] 220 mg Tablet See Rx Instructions .ROUTE .COMPLEX PRN (Reason: Pain) Rx Instructions: Take 2 tablets by mouth in the morning and 1 tablet at bedtime Discharge Orders: Discharge ED (Routine); Ordered 12/14/23 Ordered By: Kana Arevalo Discharge Diet: Advance as tolerated Discharge Activity: Resume usual activity Patient Instructions: Urinary Retention in Men (ED) Coding Level of Care Code ED Roofing Apprentice for Odalys Espinosa
[2023-12-14 18:18] VITALS: BP 131/75; PULSE 99; O2SAT 95
== END 2023-12-14 18:29 | disposition home or self-care (01) ==
PROVIDERS: Emergency Provider Emergency Medicine
DX: R33.9 Retention of urine, unspecified (principal)
CPT/HCPCS: 51702; 99282

== ENCOUNTER 2024-11-05 08:52 | Observation (INO) | payer BC, SELFPAY ==
--- OUTSIDE RECORDS SUMMARY | 2024-08-16 03:30 | XMS_ITS ---
Author Organization [id number] Address [address] [place] [address] Care Team Providers Care [employer]cery Store Courtesy Clerk Name Role Phone ADA GONZALEZ Unavailable [phone] EVIE MARK Unavailable [phone] REASON FOR VISIT Cysto/ SPtube Placement Encounters Encounter Location Date Provider Diagnosis [facility] [address] [facility] [place] [address] 08/16/2024 EVIE MARK Plan Of Treatment Next Appt Details Provider Name:SHAMIR MARI, 11/06/2024 10:00:00 AM, [address] [facility] [place], [address], Provider Name:SHAMIR MARI, 03/13/2025 01:00:00 PM, [address] [facility] [place], [address], Progress Notes * Pineda BARRIENTOSDOB:1960 ([age] yo M)Acc No.[id number]:08/16/2024 Patient: Pineda LONDON Provider: Ana MARK MD :1960 A ge:63 Y S ex:Male Date:08/16/2024 Address:[address] [place], [place] [id number] * Billing Information: * Visit Code: * Procedure Codes: * Electronic signature of AUST IN MD DEEDEE on 11/05/2024 at 08:58 AM CDT Sign off status: Pending * Provider: Ana MARK MD Date: 0 08/16/2024 Generated for Printi ng/Famauriciog/eTransmitting on: 0 11/05/2024 08:58 AM CDT
[2024-11-05] VITALS (7 sets, daily range): BP systolic 107–147; BP diastolic 60–89; PULSE 61–103; RESP 15–18; TEMP 36.8–37.5; O2SAT 94–98; BMI 24.3; BMI 20.7
--- OUTSIDE RECORDS SUMMARY | 2024-11-05 08:58 | XMS_ITS | Patient Health Record ---
Author Organization [facility] Address [address] [facility] [address] Support Name Relationship Address Phone Pineda Tijerina Guarantor Unknown Unavailable Allergies Allergen (clinical drug ingredient) Drug/Non Drug Allergy documented on EMR Reaction Allergy Type Onset Date Status penicillin G Penicillin G Pot in Dextrose rash Drug Allergy Active Reason For Referral No Information Medications Medication SIG (Take, Route, Frequency, Duration) Notes Start Date End Date Status Azithromycin 250 MG Tablet 2 tablets on the first day, then 1 tablet daily for 4 days Orally Once a day; Duration: 5 day(s) 05/12/2017 Active Cheratussin AC 100-10 MG/5ML Syrup 5 ml Orally every 4 hrs; Duration: 6 days 05/12/2017 Active predniSONE 10 MG Tablet 1 tablet Orally Twice a day; Duration: 5 days 05/12/2017 Active Social History Social History Additional Details Category Social Info Options Details zzMigrated Social History Migrated Social History 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
--- OUTSIDE RECORDS SUMMARY | 2024-11-05 08:58 | XMS_ITS | Patient Health Record ---
Author Organization [employer] Address [address] [place] [address] Care Team Providers Care Hypoid Gear Generator Name Role Phone ADA GONZALEZ Unavailable [phone] ASHLEY HUANG Unavailable [phone] EVIE FREGOSO Unavailable [phone] Allergies Allergen (clinical drug ingredient) Drug/Non Drug Allergy documented on EMR Reaction Allergy Type Onset Date Status Penicillin Unknown Drug Allergy Active Results Component Value Reference Range Notes Urinalysis, Routine Reviewed date:07/24/2024 01:08:49 PM Interpretation: Performing Lab: Notes/Report: Urine-Color yellow Appearance cloudy Glucose - Bilirubin - Ketones - Specific [place] 1.015 Occult Blood - pH 6.0 Urine Protein - Urobilinogen,Semi-Qn - Nitrite, Urine - WBC Esterase 3+ BUN Proc TX Reviewed date:01/24/2024 01:14:46 PM Interpretation: Performing Lab: Notes/Report: BUN 11 7-21 MG/DL Testing perform ed at: [address] [place] [address] CLIA ID [id number] Creat Proc TX Reviewed date:01/24/2024 01:14:41 PM Interpretation: Performing Lab: Notes/Report: Creat .87 .57-1.17 MG/DL D-tluegb-r-benzoquinone imine (NAPQI) is a metabolite of acetaminophen, NAPQI concentrations of apparoximately 10 mg/L correlation to toxic levels of acetaminophen demonstrates a greater than or equil to 10% change in results. NAPQI concentrations greater than this may lead to falsely depressed results for patient samples. Use of this assay is not recommended for patients undergoing treatment with phenindione, due to the potential for falsely depressed results. Testing performed at: [address] [place] [address] CLIA ID [id number] PSA-Screening Reviewed date:01/24/2024 01:14:06 PM Interpretation: Performing Lab: Notes/Report: PSA .62 .00-4.00 NG/ML PSA concentrations, regardless of the value, should not be interpreted as definitive evidence for the presence or absence of prostate cancer. Testing performed at: [address] [place] [id number] Abdomen, Pelvis w/ + w/o Contrast--[id number] Reviewed date:01/24/2024 03:39:36 PM Interpretation: Performing Lab: Notes/Report: See Below For Report CT Abdomen, Pelvis w/ + w/o Contrast Read See Below For Report Basic Metabolic Panel Reviewed date:07/31/2024 04:01:20 PM Interpretation: Performing Lab: Notes/Report: Testing performed at [facility], [address] [place], [place] [address] [address]. CLIA ID#: [id number] F-tnzigh-e-benzoquinone imine (NAPQI) is a metabolite of acetaminophen, NAPQI concentrations of apparoximately 10 mg/L correlation to toxic levels of acetaminophen demonstrates a greater than or equil to 10% change in results. NAPQI concentrations greater than this may lead to falsely depressed results for patient samples. Calculation performed from GFR calculator provided by the [employer]. Glomerular Filtration rate(GRF) is the best overall index of kidney function. Normal GFR varies according to age,sex, body size, and declines with age. The National Kid[employer] Foundation recommends using the CKD-EPI Creatinine Equation(2020) to estimate GFR. Testing performed at: [address] [place] [address] CLIA ID [id number] Use of this assay is not recommended for patients undergoing treatment with phenindione, due to the potential for falsely depressed results. Sodium 141 136-145 MMOL/L Potassium 4.8 3.5-5.1 MMOL/L Chloride 107 98-107 MMOL/L CO2 28.6 20.0-31.0 MMOL/L Glucose Serum 83 71-110 MG/DL BUN 16 7-21 MG/DL Creat 1.04 .57-1.17 MG/DL GFR 80.1 Anion Gap 10 5-15 BUN/Creat Ratio 15.4 12.0-20.0 % Calcium 9.4 8.7-10.4 MG/DL Osmo Serum,Calculated 292 280-300 MOSM/KG Basic Metabolic Panel Reviewed date:08/15/2024 04:22:21 PM Interpretation: Performing Lab: Notes/Report: Testing performed at [facility], [address] [place], [place] [address] [address]. CLIA ID#: [id number] V-vikoxc-c-benzoquinone imine (NAPQI) is a metabolite of acetaminophen, NAPQI concentrations of apparoximately 10 mg/L correlation to toxic levels of acetaminophen demonstrates a greater than or equil to 10% change in results. NAPQI concentrations greater than this may lead to falsely depressed results for patient samples. Calculation performed from GFR calculator provided by the [employer]. Glomerular Filtration rate(GRF) is the best overall index of kidney function. Normal GFR varies according to age,sex, body size, and declines with age. The National Kid[employer] Foundation recommends using the CKD-EPI Creatinine Equation(2020) to estimate GFR. Testing performed at: [address] [place] [address] CLIA ID [id number] Use of this assay is not recommended for patients undergoing treatment with phenindione, due to the potential for falsely depressed results. Sodium 139 136-145 MMOL/L Potassium 4.7 3.5-5.1 MMOL/L Chloride 104 98-107 MMOL/L CO2 29.4 20.0-31.0 MMOL/L Glucose Serum 74 71-110 MG/DL BUN 15 7-21 MG/DL Creat 1.20 .57-1.17 MG/DL GFR 67.9 Anion Gap 10 5-15 BUN/Creat Ratio 12.5 12.0-20.0 % Calcium 9.3 8.7-10.4 MG/DL Osmo Serum,Calculated 288 280-300 MOSM/KG CBC w/ Auto Diff Reviewed date:08/15/2024 04:22:12 PM Interpretation: Performing Lab: Notes/Report: Testing performed at: [address] [place] [address] CLIA ID [id number] WBC 8.8 4.5-11.0 X10'3 RBC 4.74 4.50-5.90 X10'6 Hgb 13.5 13.5-17.5 G/DL Hct 41.6 41.0-53.0 % MCV 87.8 80.0-100.0 FL MCH 28.5 27.0-31.0 PG MCHC 32.5 31.0-37.0 G/DL Platelet 310 150-400 X10'3 RDW-SD 44.2 35.0-49.0 FL RDW-CV 13.6 12.2-15.6 % MPV 10.5 9.2-12.0 FL Neutro Auto% 58.0 40.0-70.0 % Lymph Auto% 26.1 22.0-44.0 % Grimes Auto% 10.0 3.0-7.0 % Eos Auto% 4.6 2.0-4.0 % Baso Auto% 0.7 0.0-1.0 % Imm Gran% .6 .0-.4 % Neutro Abs 5.12 .80-7.70 Absolute Neutrophil Count 5120 Lymph Abs 2.30 .10-4.10 Grimes Abs .88 .20-1.00 Eos Abs .41 .00-.40 Baso Abs .06 .00-.20 Imm Gran Abs .05 .00-.10 NRBC# .00 .00-.20 NRBC% .00 .00-.20 /100 int act WBC's Urinalysis, Routine Reviewed date:08/14/2024 11:17:50 AM Interpretation: Performing Lab: Notes/Report: Urine-Color yellow Appearance very cloudy Glucose - Bilirubin - Ketones - Specific [place] 1.015 Occult Blood - pH 6.0 Urine Protein - Urobilinogen,Semi-Qn - Nitrite, Urine + WBC Esterase 3+ US Renal w/bladder--07101 Reviewed date:07/31/2024 04:01:20 PM Interpretation: Performing Lab: Notes/Report: See Below For Report US Renal w/bladder Read See Below For Report Reason For Referral No Information Medications Medication SIG (Take, Route, Frequency, Duration) Notes Start Date End Date Status Aleve 220 MG 1 tablet with food o r milk as needed Orally every 12 hrs Not-Taking Tamsulosin HCl 0.4 MG 1 capsule Orally T wice a day; Duration: 90 days 01/24/2024 01/18/2025 Not-Manuela pina Flomax 0.4 MG 2 capsule Orally Onc e a day Not-Taking Social History Tobacco Use: Social History Observation Description Date Details (start date - stop date) Current Smoker NA - NA Tobacco Control (Standard) Question Answer Notes Tobacco use: Current smoker How often do you smoke cigarettes? Every day How many cigarettes a day do you smoke? AUDIT-C (Standard) Question Answer Notes Did you have a drink contain ing alcohol in the past year? Yes How often did you have a dri nk containing alcohol in the past year? 2 to 3 times a week (3 points) How many drinks did you have on a typical day when you were drinking in the past year? 1 or 2 drinks (0 point) How often did you have six o r more drinks on one occasion in the past year? Never (0 point) Points 3 Interpretation Negative Problems Problem Type SNOMED Code ICD Code Onset Dates Problem Status W/U Status Risk Notes Problem Gross hematuria (652270360) Gross hematuria (R31.0) Active confirmed Problem Noncompliance with treatment (7720425) Noncompliance (Z91.199) Active confirmed Problem Bilateral hydronephrosis (08952574) Bilateral hydronephrosis (N13.30) Active confirmed Problem Urinary retention (312275241) Urinary retention (R33.9) Active confirmed Problem BPH loc w urin obs/LUTS (N40.1) Active confirmed Vital Signs Heart Rate 73 /min 10/09/2024 Blood pressure diastolic 80 mm Hg 10/09/2024 Height-cm 177.8 cm 10/09/2024 Weight-kg 68.04 kg 10/09/2024 Height 70 in 10/09/2024 Blood pressure systolic 141 mm Hg 10/09/2024 Weight 150 lbs 10/09/2024 BMI 21.52 kg/m2 10/09/2024 Procedures Procedure Date Ordered Date Performed Result Body Sit e Bladder Scan 07/24/2024 07/24/2024 N/A Bladder Scan 08/14/2024 08/14/2024 N/A SP Tube Change 09/11/2024 09/11/2024 N/A SP Tube Change 10/09/2024 10/09/2024 N/A Encounters Encounter Location Date Provider Diagnosis [facility] [address] [place] [address] 08/16/2024 [facility] [employer] [facility] [address] [place] [address] 12/27/2023 ADA GONZALEZ Urinary retention R3 3.9 ; Perry catheter in place Z96.0 ; Gross hematuria R31.0 ; Pyelonephritis N12 ; History of nephrolithiasis Z87.442 ; Noncompliance Z91.199 ; Family history of renal failure Z84.1 and Screening for prostate cancer Z12.5 [facility] [address] [place] [address] 01/24/2024 EVIE FREGOSO Urinary retention R3 3.9 ; Perry catheter in place Z96.0 ; Gross hematuria R31.0 ; Pyelonephritis N12 ; History of nephrolithiasis Z87.442 ; Noncompliance Z91.199 ; Family history of renal failure Z84.1 ; Bilateral hydronephrosis N13.30 and BPH loc w urin obs/LUTS N40.1 [facility] [address] [place] [address] 07/24/2024 ASHLEY STONECHENS Urinary retention R3 3.9 ; BPH loc w urin obs/LUTS N40.1 and Noncompliance Z91.199 [facility] [address] [place] [address] 08/14/2024 EVIE FREGOSO Urinary retention R3 3.9 ; BPH loc w urin obs/LUTS N40.1 ; Noncompliance Z91.199 and Bilateral hydronephrosis N13.30 [facility] [address] [place] [address] 09/11/2024 ASHLEY REINA Urinary retention R3 3.9 ; Bilateral hydronephrosis N13.30 and Encounter for attention to cystostomy Z43.5 [facility] [address] [place] [address] 10/09/2024 EVIE FREGOSO Encounter for attent ion to cystostomy Z43.5 and Urinary retention R33.9 [facility] [address] [place] [address] 12/16/2023 [facility] [address] [place] [address] 12/28/2023 ADA REANO [facility] [address] [place] [address] 12/28/2023 ADA REANO [facility] [address] [place] [address] 02/04/2024 ADA REANO [facility] [address] [place] [address] 05/29/2024 EVIE FREGOSO Bilateral hydronephr osis N13.30 [facility] [address] [place] [address] 08/14/2024 ADA REANO [facility] [address] [place] [address] 08/14/2024 ADA REANO [facility] [address] [place] [address] 08/14/2024 ADA REANO Urinary retention R3 3.9 ; Bilateral hydronephrosis N13.30 and Preop testing Z01.818 [facility] [address] [place] [address] 08/22/2024 ASHLEY HUANG [facility] [address] [place] [address] 09/13/2024 ASHLEY HUANG Assessments Encounter Date Diagnosis (ICD Code) Assessment Notes Treatment Notes Treatment Clinical Notes Section Notes 10/09/2024 Encounter for attention to cystostomy (ICD-10 - Z43.5) Pt here for sptube change. He tolerated well and will return in 4wks for routine change. 10/09/2024 Urinary retention (ICD-10 - R33.9) Pt here for sptube change. He tolerated well and will return in 4wks for routine change. 09/11/2024 Bilateral hydronephrosis (ICD-10 - N13.30) 09/11/2024 Urinary retention (ICD-10 - R33.9) Pt doing very well s/p SPT placement without postop complication or complaint. He had SPT change today and will start capping with instructions to empty bladder q2h while awake and wear gravity bag at night while sleeping. He will RTC every 4w for SPT changes. RTC in 6m with AJAY and BMP or sooner if needed. 05/29/2024 Bilateral hydronephrosis (ICD-10 - N13.30) 08/14/2024 Urinary retention (ICD-10 - R33.9) 08/14/2024 Urinary retention (ICD-10 - R33.9) R33.9 - Urinary retention N39.41 - Urge incontinence N13.9 - Obstructive and reflux uropathy N28.9 - Disorder of kidney and ureter, unspecified 63-year-old male with chronic urinary retention and bilateral hydronephrosis, complicated by overflow incontinence and early signs of uremia, requiring urgent intervention to prevent further kidney damage. 08/14/2024 BPH loc w urin obs/LUTS (ICD-10 - N40.1) R33.9 - Urinary retention N39.41 - Urge incontinence N13.9 - Obstructive and reflux uropathy N28.9 - Disorder of kidney and ureter, unspecified 63-year-old male with chronic urinary retention and bilateral hydronephrosis, complicated by overflow incontinence and early signs of uremia, requiring urgent intervention to prevent further kidney damage. 07/24/2024 Urinary retention (ICD-10 - R33.9) Pt is in urinar y retention with severe b/l hydronephrosis. He refuses to CIC. He refuses urethral catheter today. I discussed risk for renal failure with eventual dialysis along with rUTIs and urosepsis with untreated UR. I offered him SPT placement with possible transurethral procedure at the same time. How procedure is performed was reviewed along with risks, benefits, alternatives, and postprocedural expectations. He would like to consider. I've printed off material on retention and SPT placement for him to take home and review. RTC in 2-3w with Dr. Fregoso for further discussion. 07/24/2024 BPH loc w urin obs/LUTS (ICD-10 - N40.1) Pt is in urinary retention with severe b/l hydronephrosis. He refuses to CIC. He refuses urethral catheter today. I discussed risk for renal failure with eventual dialysis along with rUTIs and urosepsis with untreated UR. I offered him SPT placement with possible transurethral procedure at the same time. How procedure is performed was reviewed along with risks, benefits, alternatives, and postprocedural expectations. He would like to consider. I've printed off material on retention and SPT placement for him to take home and review. RTC in 2-3w with Dr. Fregoso for further discussion. 01/24/[address] (ICD-10 - Z96.0) 63 yo male with BPH with LUTS, incomplete emptying, urinary retention, bilateral hydronephrosis from [facility]. Cysto shows large bladder with severe trabeculations. Prostate is short with bilobar obstruction. CT and cysto findings reviewed. I recommend continuing CIC at least 3x/day with 16Fr catheter. I am concerned his bladder muscle may be atonic with permanent damage. Plan: continue CIC at least 3x/day with 16Fr perry indefinitely -Continue Flomax 0.8mg daily, Rx sent today -RTC in 6m with BMP, AJAY, PVR and see Ashley Huang [employer] 01/24/2024 Urinary retention (ICD-10 - R33.9) 63 yo male with BPH with LUTS, incomplete emptying, urinary retention, bilateral hydronephrosis from [facility]. Cysto shows large bladder with severe trabeculations. Prostate is short with bilobar obstruction. CT and cysto findings reviewed. I recommend continuing CIC at least 3x/day with 16Fr catheter. I am concerned his bladder muscle may be atonic with permanent damage. Plan: continue CIC at least 3x/day with 16Fr perry indefinitely -Continue Flomax 0.8mg daily, Rx sent today -RTC in 6m with BMP, AJAY, PVR and see Ashley Huang [employer] 12/27/[address] (ICD-10 - Z96.0) 12/27/2023 Urinary retention (ICD-10 - R33.9) 12/27/2023 Gross hematuria (ICD-10 - R31.0) 01/24/2024 Gross hematuria (ICD-10 - R31.0) 63 yo male with BPH with LUTS, incomplete emptying, urinary retention, bilateral hydronephrosis from [facility]. Cysto shows large bladder with severe trabeculations. Prostate is short with bilobar obstruction. CT and cysto findings reviewed. I recommend continuing CIC at least 3x/day with 16Fr catheter. I am concerned his bladder muscle may be atonic with permanent damage. Plan: continue CIC at least 3x/day with 16Fr perry indefinitely -Continue Flomax 0.8mg daily, Rx sent today -RTC in 6m with BMP, AJAY, PVR and see Ashley Huang [employer] 07/24/2024 Noncompliance (ICD-10 - Z91.199) Pt is in urin keyur retention with severe b/l hydronephrosis. He refuses to CIC. He refuses urethral catheter today. I discussed risk for renal failure with eventual dialysis along with rUTIs and urosepsis with untreated UR. I offered him SPT placement with possible transurethral procedure at the same time. How procedure is performed was reviewed along with risks, benefits, alternatives, and postprocedural expectations. He would like to consider. I've printed off material on retention and SPT placement for him to take home and review. RTC in 2-3w with Dr. Fregoso for further discussion. 09/11/2024 Encounter for attention to cystostomy (ICD-10 - Z43.5) 08/14/2024 Noncompliance (ICD-10 - Z91.199) R33.9 - Urinary retention N39.41 - Urge incontinence N13.9 - Obstructive and reflux uropathy N28.9 - Disorder of kidney and ureter, unspecified 63-year-old male with chronic urinary retention and bilateral hydronephrosis, complicated by overflow incontinence and early signs of uremia, requiring urgent intervention to prevent further kidney damage. 08/14/2024 Bilateral hydronephrosis (ICD-10 - N13.30) 08/14/2024 Preop testing (ICD-10 - Z01.818) 08/14/2024 Bilateral hydronephrosis (ICD-10 - N13.30) R33.9 - Urinary retention N39.41 - Urge incontinence N13.9 - Obstructive and reflux uropathy N28.9 - Disorder of kidney and ureter, unspecified 63-year-old male with chronic urinary retention and bilateral hydronephrosis, complicated by overflow incontinence and early signs of uremia, requiring urgent intervention to prevent further kidney damage. 12/27/2023 Pyelonephritis (ICD-10 - N12) 01/24/2024 Pyelonephritis (ICD-10 - N12) 63 yo male with BPH with LUTS, incomplete emptying, urinary retention, bilateral hydronephrosis from [facility]. Cysto shows large bladder with severe trabeculations. Prostate is short with bilobar obstruction. CT and cysto findings reviewed. I recommend continuing CIC at least 3x/day with 16Fr catheter. I am concerned his bladder muscle may be atonic with permanent damage. Plan: continue CIC at least 3x/day with 16Fr perry indefinitely -Continue Flomax 0.8mg daily, Rx sent today -RTC in 6m with BMP, AJAY, PVR and see Ashley Huang [employer] 01/24/2024 History of nephrolithiasis (ICD-10 - Z87.442) 63 yo male with BPH with LUTS, incomplete emptying, urinary retention, bilateral hydronephrosis from [facility]. Cysto shows large bladder with severe trabeculations. Prostate is short with bilobar obstruction. CT and cysto findings reviewed. I recommend continuing CIC at least 3x/day with 16Fr catheter. I am concerned his bladder muscle may be atonic with permanent damage. Plan: continue CIC at least 3x/day with 16Fr perry indefinitely -Continue Flomax 0.8mg daily, Rx sent today -RTC in 6m with BMP, AJAY, PVR and see Ashley Huang [employer] 12/27/2023 History of nephrolithiasis (ICD-10 - Z87.442) 12/27/2023 Noncompliance (ICD-10 - Z91.199) 01/24/2024 Noncompliance (ICD-10 - Z91.199) 63 yo male with BPH with LUTS, incomplete emptying, urinary retention, bilateral hydronephrosis from [facility]. Cysto shows large bladder with severe trabeculations. Prostate is short with bilobar obstruction. CT and cysto findings reviewed. I recommend continuing CIC at least 3x/day with 16Fr catheter. I am concerned his bladder muscle may be atonic with permanent damage. Plan: continue CIC at least 3x/day with 16Fr perry indefinitely -Continue Flomax 0.8mg daily, Rx sent today -RTC in 6m with BMP, AJAY, PVR and see Ashley Huang [employer] 12/27/2023 Family history of renal failure (ICD-10 - Z84.1) 01/24/2024 Family history of renal failure (ICD-10 - Z84.1) 63 yo male with BPH with LUTS, incomplete emptying, urinary retention, bilateral hydronephrosis from [facility]. Cysto shows large bladder with severe trabeculations. Prostate is short with bilobar obstruction. CT and cysto findings reviewed. I recommend continuing CIC at least 3x/day with 16Fr catheter. I am concerned his bladder muscle may be atonic with permanent damage. Plan: continue CIC at least 3x/day with 16Fr perry indefinitely -Continue Flomax 0.8mg daily, Rx sent today -RTC in 6m with BMP, AJAY, PVR and see Ashley Huang [employer] 01/24/2024 Bilateral hydronephrosis (ICD-10 - N13.30) 63 yo male with BPH with LUTS, incomplete emptying, urinary retention, bilateral hydronephrosis from [facility]. Cysto shows large bladder with severe trabeculations. Prostate is short with bilobar obstruction. CT and cysto findings reviewed. I recommend continuing CIC at least 3x/day with 16Fr catheter. I am concerned his bladder muscle may be atonic with permanent damage. Plan: continue CIC at least 3x/day with 16Fr perry indefinitely -Continue Flomax 0.8mg daily, Rx sent today -RTC in 6m with BMP, AJAY, PVR and see Ashley Huang [employer] 12/27/2023 Screening for prostate cancer (ICD-10 - Z12.5) 01/24/2024 BPH loc w urin obs/LUTS (ICD-10 - N40.1) 63 yo male with BPH with LUTS, incomplete emptying, urinary retention, bilateral hydronephrosis from [facility]. Cysto shows large bladder with severe trabeculations. Prostate is short with bilobar obstruction. CT and cysto findings reviewed. I recommend continuing CIC at least 3x/day with 16Fr catheter. I am concerned his bladder muscle may be atonic with permanent damage. Plan: continue CIC at least 3x/day with 16Fr perry indefinitely -Continue Flomax 0.8mg daily, Rx sent today -RTC in 6m with BMP, AJAY, PVR and see Ashley Huang [employer] 12/27/2023 Other Patient adamant about voiding trial today. Recommended that he CIC on a schedule due to risks of infection, bladder injury, kidney injury, etc., but he defers. He is now on Tamsulosin, which he thinks will help. I have given him strict instruction to use timed voidng every 4 hours. He has CIC supplies on hand to use in case of emergency. Recommend repeat CT to re-evaluate kidneys, and recommend cystoscopy given his significant smoking history, hematuria, and to fully evaluate his bladder. He is agreeable. He will RTC for next available cystoscopy. All questions that were asked were answered. Patient satisfied with plan of care. 08/14/2024 Other #Urinary Retention Will proceed with cysto with suprapubic tube placement in OR under general anesthesia Procedure to be scheduled RENÉ due to risk of further kidney damage Monthly catheter changes to be performed in office post op #Kidney Function Monitor renal function closely post-interventi on Assess improvement of uremic symptoms after bladder decompression #Follow-up Schedule OR date pending insurance authorization Monthly follow-up for catheter changes You have been scheduled for placement of a special tube (suprapubic catheter) to help empty your bladder. This tube will go through your lower belly into your bladder. The procedure will be done in the operating room while you are asleep. Recovery time is 4-5 days. After the procedure, you will need to: - Keep the tube site clean and dry - Empty the drainage bag regularly - Return monthly for tube changes - Watch for signs of infection like fever or increased pain Call immediately if you develop: - Fever above 101.5 degree(s) F - Severe pain - Bleeding - Tube becomes dislodged R33.9 - Urinary retention N39.41 - Urge incontinence N13.9 - Obstructive and reflux uropathy N28.9 - Disorder of kidney and ureter, unspecified 63-year-old male with chronic urinary retention and bilateral hydronephrosis, complicated by overflow incontinence and early signs of uremia, requiring urgent intervention to prevent further kidney damage. Plan Of Treatment Pending Test Test Name Order Date CT Abd & Pelvis W & [place] contrast [id number] 12/27/2023 BUN, Creatinine 12/27/2023 PSA, TOTAL ([id number]) 12/27/2023 Basic Metabolic Panel 05/29/2024 Electrocardiogram, 12 Lead Tracing-[id number] 08/14/2024 Next Appt Details Provider Name:ASHLEY MARI, 11/06/2024 10:00:00 AM, [address] [place], [address], Provider Name:ASHLEY REN KAMALJIT, 03/13/2025 01:00:00 PM, [address] [place], [address], Insurance Providers Payer Name Payer Address Payer Phone Subscriber Number Group Number Insured Name Patient Relationship to Insured Coverage Start Date Coverage End Date [employer] [place] [address] [place], [place] [id number] Pineda Tijerina Self - patient is the insured Medical (General) History Medical History History ICD Code urinary retention ED back pain kidney stones Surgical History Surgery Date(Month/Year) sp tube placement 08/16/24
--- NOTE | 2024-11-05 09:14 | W.ED.MALEGU ---
HPI - Male Genitourinary General: Chief complaint: Urogenital-Male Stated complaint: catheter Time Seen by Provider: 11/05/24 08:58 History of Present Illness: HPI: Patient with history of bladder outlet obstruction had suprapubic catheter placed approximately 8 weeks ago. Has had the catheter replaced in the past in clinic. Presents today because catheter became dislodged overnight and unable to evacuate his bladder. Subsequently is having distention and suprapubic abdominal pressure. No fevers, sweats, chills. Patient states he is having purulent discharge from the tip of his penis which is new for him as well. No radiation of pain into the flank, chest, epigastrium. No nausea, vomiting, diarrhea. REVIEW OF SYSTEMS: 10 systems reviewed and otherwise unremarkable except for those noted in HPI. PHYSCIAL EXAM: Triage vital signs reviewed Gen: A&O NAD HEENT: NCAT, EOMI, not icteric. External ears normal. No rhinorrhea. Moist mucous membranes. Neck: Supple, full range of motion, no observable masses, No meningeal sign. Lungs: No Respiratory distress. CV: RRR, no edema. Abdomen: Soft, distended and tender suprapubic area. MSK: No joint swelling, no redness. Skin: No rashes, petechiae, lesions. Normal color per patient. Neuro: Normal Gait, Grossly intact. Psych: Appropriate for situation. PROCEDURES: N/A Related Data Home Medications ?Medication ?Instructions ?Recorded ?Confirmed naproxen sodium 220 mg tablet See Rx Instructions .Route 11/22/23 12/14/23 (Aleve) .COMPLEX PRN Pain Previous Rx's ?Medication ?Instructions ?Recorded ciprofloxacin HCl 500 mg tablet 500 mg PO BID #14 tabs 12/14/23 (Cipro) tamsulosin 0.4 mg capsule 0.8 mg (2 x 0.4 mg) PO Q24H #60 12/14/23 caps Allergies Allergy/AdvReac Type Severity Reaction Status Date / Time Penicillins Allergy ALGY-Rash Verified 11/25/23 14:21 [facility] ED PFSH: Medical History (Updated 11/05/24 @ 10:24 by Iam Mckee MD) Urinary frequency Urinary retention Surgical History Hx of tonsillectomy Family History Mother , at 64 Lung cancer Father , at 62 Chronic kidney disease (CKD) Cancer Social History Smoking and tobacco/nicotine status: current every day tobacco/nicotine user Alcohol intake: current Alcohol type: beer Substance/Drug Use: never Marital status: Current occupational status: employed Course Vital Signs: Vital signs: Vital Signs Temperature 98.2 F 11/05/24 09:01 Pulse Rate 103 H 11/05/24 09:01 Respiratory Rate 16 11/05/24 09:01 Blood Pressure 147/89 11/05/24 09:01 Pulse Oximetry 95 11/05/24 09:01 Oxygen Delivery Me thod Room Air 11/05/24 09:01 MDM - Male Medical Decision Making MEDICAL DECISION MAKING: Differential diagnoses considered but not limited to: Postobstructive uropathy, electrolyte derangement, bladder rupture, other intra-abdominal surgical infectious emergency. Vitals nonactionable. Given history, examination, and pretest risk factors, feel patient needs emergent replacement of suprapubic catheter. Tract matured at this point. Attempted and successfully placed suprapubic catheter in the room. Labs returned nonactionable not emergent. Labs with white count approaching 20 absent lactic acidosis. Urinalysis concerning for infection. Will get the patient to hospital service for further evaluation and treatment he meeting SIRS criteria with a source (sepsis). No septic shock or severe organ dysfunction at this time. Dr. Cifuentes excepted patient as an inpatient and recommend CT scan while patient is being admitted. DISPO: admit Iam Mckee MD Staff physician, [facility] [place] Emergency Department [phone] Lab Data 11/05/24 09:16 11/05/24 09:16 Laboratory Results WBC 19.76 10^3/uL (3.29-11.43) H 11/05/24 09:16 RBC 5.36 10^6/uL (3.85-5.65) 11/05/24 09:16 Hgb 15.50 g/dL (11.27-16.99) 11/05/24 09:16 Hct 46.9 % (37-53) 11/05/24 09:16 MCV 87.5 fl (82-101) 11/05/24 09:16 MCH 28.9 pg (27-33) 11/05/24 09:16 MCHC 33.0 g/dL (30-55) 11/05/24 09:16 RDW 14.3 % (12.1-15.1) 11/05/24 09:16 Plt Count 250 10^3/cmm (157-399) 11/05/24 09:16 MPV 11.0 fL (7.4-10.4) H 11/05/24 09:16 Neut % (Auto) 86.3 % 11/05/24 09:16 Lymph % (Auto) 5.0 % 11/05/24 09:16 [place] % (Auto) 7.8 % 11/05/24 09:16 Eos % (Auto) 0.1 % 11/05/24 09:16 Baso % (Auto) 0.3 % 11/05/24 09:16 Neut # (Auto) 17.06 10^3/uL (1.8-7.7) H 11/05/24 09:16 Lymph # (Auto) 1.0 10^3/uL (0.8-4.8) 11/05/24 09:16 [place] # (Auto) 1.6 10^3/uL (0.2-0.9) H 11/05/24 09:16 Eos # (Auto) 0.0 10^3/uL (0.0-0.8) 11/05/24 09:16 Baso # (Auto) 0.1 10^3/uL (0.0-0.1) 11/05/24 09:16 Nucleated RBC % (auto) 0 % 11/05/24 09:16 Nucleated RBCs # 0.0 /100WBC 11/05/24 09:16 Sodium 132 mmol/L (136-145) L 11/05/24 09:16 Potassium 4.2 mmol/L (3.5-5.1) 11/05/24 09:16 Chloride 100 mmol/L (98-107) 11/05/24 09:16 Carbon Dioxide 20 mmol/L (22-29) L 11/05/24 09:16 Anion Gap 16.2 (5-19) 11/05/24 09:16 BUN 16 mg/dL (8-23) 11/05/24 09:16 Creatinine 1.1 mg/dL (0.7-1.2) 11/05/24 09:16 GFR Calculation 67.6 mL/min (90-130) L 11/05/24 09:16 Glucose 139 mg/dL (65-115) H 11/05/24 09:16 Calculated Osmolality 277 mOsm/kg (285-295) L 11/05/24 09:16 Lactic Acid 1.6 mmol/L (0.5-2.2) 11/05/24 09:16 Calcium 9.2 mg/dL (8.5-10.5) 11/05/24 09:16 Total Bilirubin 1.3 mg/dL (0.15-1.2) H 11/05/24 09:16 AST 16 U/L (0-40) 11/05/24 09:16 ALT 13 U/L (0-41) 11/05/24 09:16 Alkaline Phosphatase 83 U/L (40-130) 11/05/24 09:16 Total Protein 7.6 g/dL (6.6-8.7) 11/05/24 09:16 Albumin 4.2 g/dL (3.5-5.2) 11/05/24 09:16 Globulin 3.4 g/dL (1.3-4.6) 11/05/24 09:16 Urine Color Yellow (Yellow) 11/05/24 09:43 Urine Appearance Turbid (CLEAR) A 11/05/24 09:43 Urine pH 7.0 (5-7) 11/05/24 09:43 Ur Specific [place] 1.008 (1.005-1.030) 11/05/24 09:43 Urine Protein 3+ (Negative) A 11/05/24 09:43 Urine Glucose (UA) Negative (Normal) 11/05/24 09:43 Urine Ketones Negative (Negative) 11/05/24 09:43 Urine Blood 2+ (Negative) A 11/05/24 09:43 Urine Nitrate Negative (Negative) 11/05/24 09:43 Urine Bilirubin Negative (Negative) 11/05/24 09:43 Urine Urobilinogen 0.2 mg/dL (Negative) 11/05/24 09:43 Ur Leukocyte Esterase 3+ (Negative) A 11/05/24 09:43 Urine RBC 51-100 /hpf (0-2) H 11/05/24 09:43 Urine WBC >100 /hpf (0-5) H 11/05/24 09:43 Ur Squamous Epith Cells 0-5 /hpf (0-5) 11/05/24 09:43 Amorphous Sediment Not Reportable 11/05/24 09:43 Urine Bacteria 4+ /hpf (NONE) H 11/05/24 09:43 Hyaline Casts 1.91 /lpf 11/05/24 09:43 No radiology studies performed this visit Discharge Plan Discharge Patient Disposition: Placed in Observation Clinical Impression: Urinary retention, Acute UTI Sepsis Qualifiers: Sepsis type: sepsis due to unspecified organism Sepsis acute organ dysfunction status: without acute organ dysfunction Qualified Code(s): A41.9 - Sepsis, unspecified organism Complication, suprapubic catheter obstruction Qualifiers: Encounter type: initial encounter Qualified Code(s): T83.090A - Other mechanical complication of cystostomy catheter, initial encounter Coding Level of Care Code ED Associate Financial Analyst for Odalys Espinosa
[2024-11-05 09:27] LABS: Hematocrit 46.9 % (37-53); Hemoglobin 15.50 g/dL (11.27-16.99); Mean Corpuscular HGB Conc 33.0 g/dL (30-55); Mean Corpuscular Hemoglobin 28.9 pg (27-33); Mean Corpuscular Volume 87.5 fl (82-101); Nucleated Red Blood Cells % 0 %; Platelet Count 250 10^3/cmm (157-399); Red Blood Count 5.36 10^6/uL (3.85-5.65); White Blood Count 19.76 10^3/uL (3.29-11.43)
[2024-11-05 09:41] LABS: Lactic Sepsis W/Reflex 1.6 mmol/L (0.5-2.2)
[2024-11-05 09:43] LABS: Alanine Aminotransferase 13 U/L (0-41); Albumin Level 4.2 g/dL (3.5-5.2); Alkaline Phosphatase 83 U/L (40-130); Anion Gap 16.2 (5-19); Aspartate Amino Transferase 16 U/L (0-40); Blood Urea Nitrogen 16 mg/dL (8-23); Calcium 9.2 mg/dL (8.5-10.5); Carbon Dioxide 20 mmol/L (22-29); Chloride 100 mmol/L (98-107); Creatinine Clr Calc Pharmacy 72.5709; Globulin 3.4 g/dL (1.3-4.6); Glucose 139 mg/dL (65-115); Osmolality Calculated 277 mOsm/kg (285-295); Potassium 4.2 mmol/L (3.5-5.1); Sodium 132 mmol/L (136-145); Total Protein 7.6 g/dL (6.6-8.7)
[2024-11-05 09:50] LABS: Glucose Urine UA Negative (Normal); Nitrate Urine Negative (Negative); Specific Gravity, Urine 1.008 (1.005-1.030)
[2024-11-05 09:52] LABS: Add Urine Microscopic? YES
[2024-11-05 10:07] LABS: UA Slide Review UA Slide Review Perf
--- NOTE | 2024-11-05 10:20 | CTR_ITS ---
PROCEDURE INFORMATION: Exam: CT Abdomen And Pelvis With Contrast Exam date and time: 11/05/2024 10:39 AM Age: 63 years old Clinical indication: Abdominal pain; Flank; Right; Prior surgery; Surgery date: 6+ months; Surgery type: Suprapubic catheter; Additional info: Eval intra-abdominal source of sepsis TECHNIQUE: Imaging protocol: Computed tomography of the abdomen and pelvis with contrast. Radiation optimization: All CT scans at this facility use at least one of these dose optimization techniques: automated exposure control; mA and/or kV adjustment per patient size (includes targeted exams where dose is matched to clinical indication); or iterative reconstruction. Contrast material: OMNIPAQUE 350; Contrast volume: 100 ml; Contrast route: INTRAVENOUS (IV); COMPARISON: CT abdomen pelvis w con* [id number] 11/22/2023 10:04 AM RADIATION DOSE METRICS: Total DLP (mGy-cm): 359.77 FINDINGS: Lungs: Bibasilar atelectasis. Liver: The liver is normal in size. Subcentimeter hypodensity in the right hepatic lobe (4/27) too small to further characterize. Gallbladder and biliary ducts: Normal. No calcified stones. No ductal dilation. Pancreas: Normal. No ductal dilation. Spleen: Normal. No splenomegaly. Adrenal glands: Normal. No mass. Kidneys and ureters: Redemonstrated bilateral pelviectasis [id number]-right with redemonstrated urothelial enhancement seen throughout the course of the bilateral ureters. Slightly improved heterogeneous enhancement of the bilateral kidneys with scattered areas of hypoattenuation seen along the anterior upper pole of the left kidney. Stomach and bowel: Unremarkable. No obstruction. No mucosal thickening. Appendix: No evidence of appendicitis. Intraperitoneal space: No intraperitoneal free air. Small amount of free fluid within the pelvis. Vasculature: Mild aortoiliac atherosclerosis. Lymph nodes: Unremarkable. No enlarged lymph nodes. Urinary bladder: The urinary bladder is severely thick walled with pericystic stranding. Status post suprapubic catheter insertion. Small amount of air within the urinary bladder likely related to recent catheterization. Reproductive: Unremarkable as visualized. Bones/joints: Mild multilevel degenerative disease of the thoracolumbar spine. Diffuse disc bulge at L5-S1. Soft tissues: Small fat containing umbilical hernia. CT/CT abdomen pelvis w con* [id number] IMPRESSION: 1. Grossly stable exam with bilateral pelviectasis and urothelial enhancement seen throughout the bilateral renal collecting systems and ureters [id number]-right which is concerning for superimposed ureteritis/pyelitis. There is also a mildly striated enhancement appearance of the upper pole of the left kidney which suggests possibility for pyelonephritis. Recommend correlation with clinical presentation and laboratory values. 2. The urinary bladder is circumferentially severely thickened status post suprapubic catheterization. Superimposed cystitis is suspected. 3. Small amount of free fluid within the pelvis presumably reactive in etiology.
[2024-11-05] MEDS: iohexol 350 mg/mL 500 mL Btl (per mL) IV (10:25)
--- NOTE | 2024-11-05 10:29 | W.ED.MALEGU ---
HPI - Male Genitourinary General: Chief complaint: Urogenital-Male Stated complaint: catheter Time Seen by Provider: 11/05/24 08:58 Related Data Home Medications ?Medication ?Instructions ?Recorded ?Confirmed naproxen sodium 220 mg tablet See Rx Instructions .Route 11/22/23 12/14/23 (Aleve) .COMPLEX PRN Pain Previous Rx's ?Medication ?Instructions ?Recorded ciprofloxacin HCl 500 mg tablet 500 mg PO BID #14 tabs 12/14/23 (Cipro) tamsulosin 0.4 mg capsule 0.8 mg (2 x 0.4 mg) PO Q24H #60 12/14/23 caps Allergies Allergy/AdvReac Type Severity Reaction Status Date / Time Penicillins Allergy ALGY-Rash Verified 11/25/23 14:21 PFSH ED PFSH: Medical History (Updated 11/05/24 @ 10:24 by Iam Mckee MD) Urinary frequency Urinary retention Surgical History Hx of tonsillectomy Family History Mother , at 64 Lung cancer Father , at 62 Chronic kidney disease (CKD) Cancer Social History Smoking and tobacco/nicotine status: current every day tobacco/nicotine user Alcohol intake: current Alcohol type: beer Substance/Drug Use: never Marital status: Current occupational status: employed Course Vital Signs: Vital signs: Vital Signs Temperature 98.2 F 11/05/24 09:01 Pulse Rate 103 H 11/05/24 09:01 Respiratory Rate 16 11/05/24 09:01 Blood Pressure 147/89 11/05/24 09:01 Pulse Oximetry 95 11/05/24 09:01 Oxygen Delivery Me thod Room Air 11/05/24 09:01 MDM - Male Lab Data 11/05/24 09:16 11/05/24 09:16 Laboratory Results WBC 19.76 10^3/uL (3.29-11.43) H 11/05/24 09:16 RBC 5.36 10^6/uL (3.85-5.65) 11/05/24 09:16 Hgb 15.50 g/dL (11.27-16.99) 11/05/24 09:16 Hct 46.9 % (37-53) 11/05/24 09:16 MCV 87.5 fl (82-101) 11/05/24 09:16 MCH 28.9 pg (27-33) 11/05/24 09:16 MCHC 33.0 g/dL (30-55) 11/05/24 09:16 RDW 14.3 % (12.1-15.1) 11/05/24 09:16 Plt Count 250 10^3/cmm (157-399) 11/05/24 09:16 MPV 11.0 fL (7.4-10.4) H 11/05/24 09:16 Neut % (Auto) 86.3 % 11/05/24 09:16 Lymph % (Auto) 5.0 % 11/05/24 09:16 [place] % (Auto) 7.8 % 11/05/24 09:16 Eos % (Auto) 0.1 % 11/05/24 09:16 Baso % (Auto) 0.3 % 11/05/24 09:16 Neut # (Auto) 17.06 10^3/uL (1.8-7.7) H 11/05/24 09:16 Lymph # (Auto) 1.0 10^3/uL (0.8-4.8) 11/05/24 09:16 [place] # (Auto) 1.6 10^3/uL (0.2-0.9) H 11/05/24 09:16 Eos # (Auto) 0.0 10^3/uL (0.0-0.8) 11/05/24 09:16 Baso # (Auto) 0.1 10^3/uL (0.0-0.1) 11/05/24 09:16 Nucleated RBC % (auto) 0 % 11/05/24 09:16 Nucleated RBCs # 0.0 /100WBC 11/05/24 09:16 Sodium 132 mmol/L (136-145) L 11/05/24 09:16 Potassium 4.2 mmol/L (3.5-5.1) 11/05/24 09:16 Chloride 100 mmol/L (98-107) 11/05/24 09:16 Carbon Dioxide 20 mmol/L (22-29) L 11/05/24 09:16 Anion Gap 16.2 (5-19) 11/05/24 09:16 BUN 16 mg/dL (8-23) 11/05/24 09:16 Creatinine 1.1 mg/dL (0.7-1.2) 11/05/24 09:16 GFR Calculation 67.6 mL/min (90-130) L 11/05/24 09:16 Glucose 139 mg/dL (65-115) H 11/05/24 09:16 Calculated Osmolality 277 mOsm/kg (285-295) L 11/05/24 09:16 Lactic Acid 1.6 mmol/L (0.5-2.2) 11/05/24 09:16 Calcium 9.2 mg/dL (8.5-10.5) 11/05/24 09:16 Total Bilirubin 1.3 mg/dL (0.15-1.2) H 11/05/24 09:16 AST 16 U/L (0-40) 11/05/24 09:16 ALT 13 U/L (0-41) 11/05/24 09:16 Alkaline Phosphatase 83 U/L (40-130) 11/05/24 09:16 Total Protein 7.6 g/dL (6.6-8.7) 11/05/24 09:16 Albumin 4.2 g/dL (3.5-5.2) 11/05/24 09:16 Globulin 3.4 g/dL (1.3-4.6) 11/05/24 09:16 Urine Color Yellow (Yellow) 11/05/24 09:43 Urine Appearance Turbid (CLEAR) A 11/05/24 09:43 Urine pH 7.0 (5-7) 11/05/24 09:43 Ur Specific [place] 1.008 (1.005-1.030) 11/05/24 09:43 Urine Protein 3+ (Negative) A 11/05/24 09:43 Urine Glucose (UA) Negative (Normal) 11/05/24 09:43 Urine Ketones Negative (Negative) 11/05/24 09:43 Urine Blood 2+ (Negative) A 11/05/24 09:43 Urine Nitrate Negative (Negative) 11/05/24 09:43 Urine Bilirubin Negative (Negative) 11/05/24 09:43 Urine Urobilinogen 0.2 mg/dL (Negative) 11/05/24 09:43 Ur Leukocyte Esterase 3+ (Negative) A 11/05/24 09:43 Urine RBC 51-100 /hpf (0-2) H 11/05/24 09:43 Urine WBC >100 /hpf (0-5) H 11/05/24 09:43 Ur Squamous Epith Cells 0-5 /hpf (0-5) 11/05/24 09:43 Amorphous Sediment Not Reportable 11/05/24 09:43 Urine Bacteria 4+ /hpf (NONE) H 11/05/24 09:43 Hyaline Casts 1.91 /lpf 11/05/24 09:43 Discharge Plan Discharge Patient Disposition: Placed in Observation Clinical Impression: Urinary retention, Acute UTI Sepsis Qualifiers: Sepsis type: sepsis due to unspecified organism Sepsis acute organ dysfunction status: without acute organ dysfunction Qualified Code(s): A41.9 - Sepsis, unspecified organism Complication, suprapubic catheter obstruction Qualifiers: Encounter type: initial encounter Qualified Code(s): T83.090A - Other mechanical complication of cystostomy catheter, initial encounter Coding Level of Care Code ED Learning And Development Officer for Odalys Espinosa
[2024-11-05] MEDS: cefTRIAXone 1,000 mg SDV 1000 MG IVP (10:31)
[2024-11-05 11:18] LABS: Neisseria Gonorrhea NOT DETECTED (Negative)
--- NOTE | 2024-11-05 15:42 | PC.NURSE ---
Pain notified doctor of pain. DR stated he will put order in for Tylenol.
--- NOTE | 2024-11-05 15:55 | PM.HP ---
Providers/Chief Complaint Admitting Physician: Telly Cifunetes MD Chief Complaint: catheter History of Present Illness Pineda Tijerina is a 63 year old male with history of bladder outlet obstruction had suprapubic catheter placed approximately 8 weeks ago and was due for change tomorrow. Has had the catheter replaced in the past in clinic. Presents today because catheter became dislodged overnight and unable to evacuate his bladder. Subsequently is having distention and suprapubic abdominal pressure. No fevers, sweats, chills. Patient states he is having purulent discharge from the tip of his penis which is new for him as well. No radiation of pain into the flank, chest, epigastrium. No nausea, vomiting, diarrhea. the patient reported that he has some obstruction but not sure what was the reason exactly but mentioned may be it was his prostate? the patient had his suprapubic cath placed in the ED. was having increased WBCs and blood and urine cultures were taken. based on the previous urine cultures he is started on ceftriaxone. he passed adequate amount of urine post cath change. CT abd pelvis done and showed signs of complicated pyelonephritis and ureteritis as well. he also recieved 1L in the ER. Review of Systems General: Reports: 10 or more systems reviewed and unremarkable except in HPI and below Medications/Allergies Home Medications ?Medication ?Instructions ?Recorded ?Confirmed ?Last Taken ?Type No Known Home Medications 11/05/24 11/05/24 Unknown History Allergies Allergy/AdvReac Type Severity Reaction Status Date / Time Penicillins Allergy ALGY-Rash Verified 11/25/23 14:21 PFSH Acute PFSH: Medical History (Updated 11/05/24 @ 16:04 by Telly Cifuentes MD) Urinary frequency Urinary retention Surgical History Hx of tonsillectomy Family History Mother , at 64 Lung cancer Father , at 62 Chronic kidney disease (CKD) Cancer Social History Smoking and tobacco/nicotine status: current every day tobacco/nicotine user Alcohol intake: current Alcohol type: beer Substance/Drug Use: never Marital status: Current occupational status: employed Vitals/I&O/Wt Last Vital Signs Temp 98.6 F 11/05/24 13:29 Pulse 68 11/05/24 13:29 Resp 17 11/05/24 13:29 BP 110/66 11/05/24 13:29 Pulse Ox 98 11/05/24 13:29 O2 Del Method Room Air 11/05/24 13:29 11/05/24 11/05/24 11/05/24 06:59 14:59 22:59 Intake Total 1999 / 1999 Output Total 550 / 550 Balance 1450 / 1450 Weight last 48 hrs Weight 66.497 kg Weight 77.111 kg Physical Exam Narrative: General: Alert oriented x3, patient seen lying comfortably with suprapubic cath in place and the urine bag attached to the thigh HEENT: Normocephalic, atraumatic, EOMI, breathing at room air Cardio: Regular rate rhythm, normal S1-S2, no murmurs rubs gallops, JVD normal Respiratory: Good bilateral air entry, no wheezes no rhonchi appreciated GI: Abdomen soft, nontender, nondistended, normoactive bowel sounds present all 4 quadrants, no suprapubic tenderness Neuro: Cranial nerves II to XII intact, strength 5/5, sensation 5/5, no gross neurological deficit Behavior: Appropriate and cooperative Extremities: Pulses 2+, no edema, no cyanosis Skin: Visible skin intact, no rashes Data 11/05/24 09:16 11/05/24 09:16 Micro: Microbiology 11/05/24 10:22 Blood Culture - Preliminary Blood SPECIMEN COLLECTED 11/05/24 09:16 Blood Culture - Preliminary Blood SPECIMEN COLLECTED A&P Assessment and plan 1. Complication, suprapubic catheter obstruction: 2. Urinary retention: 3. Pyelonephritis, acute: 4. Complicated UTI (urinary tract infection): Plan: - continue ceftriaxone 1gm daily - monitor intake and output - monitor vitals - follow blood and urine culture - FU with the urology at the time of discharge - continue hydration and monitor of renal functions and electrolytes with correction accordingly VTE: enoxaparin diet: cardiac diet PDMP PDMP Reviewed: Not Reviewed Attestations Medical Necessity Statement*: Pineda Tijerina's hospital stay will require less than 2 mid nights for managing his complicated UTI however if required more stay to optimise his condition and avoiding further deterioration, then may need more stay Time Spent in Patient Care: 16 - 35 minutes (>than 50% of time spent in counselling and/or direct pt care on unit). Other Attestations: Patient condition has been discussed at length with the patient/family, I have independently reviewed the chart labs imaging and diagnostics and EKG. the goals of care and code status with the patient/family/NOK/legal goodwill representative, and documented accordingly. The patient/family has been informed about the current condition and further plan of care. Agreed with the plan of care and understood without any language barrier. This documentation was created by [employer] clinical data programmer software. Every effort was made to ensure accuracy of clinical data programmer. Any obvious errors or omissions should be clarified with the author of the document. Coding Level of Care Code 89823 Diagnoses Complication, suprapubic catheter obstruction T83.090A Urinary retention R33.9 Pyelonephritis, acute N10 Complicated UTI (urinary tract infection) N39.0
[2024-11-05 16:13] LABS: Estmated Average Glucose 108; Hemoglobin A1C 5.4 % (4.0-6.0)
--- NOTE | 2024-11-05 19:05 | PC.NURSE ---
Addendum entered by Sonia Milton RN 11/05/24 19:08: This nurse asked this patient for permission to speak to his son since he is not on his HIPPA form. Patient said it was fine. Original Note: Patient Son called Pineda DOAN called and wants to be call if anything changes. Numbrs you can reach him at are [phone]. Or [phone].
[2024-11-06 04:00] VITALS: BP 105/58; PULSE 65; RESP 16; TEMP 37; O2SAT 95
[2024-11-06 06:50] LABS: Hematocrit 38.7 % (37-53); Hemoglobin 12.90 g/dL (11.27-16.99); Mean Corpuscular HGB Conc 33.3 g/dL (30-55); Mean Corpuscular Hemoglobin 29.2 pg (27-33); Mean Corpuscular Volume 87.6 fl (82-101); Nucleated Red Blood Cells % 0 %; Platelet Count 236 10^3/cmm (157-399); Red Blood Count 4.42 10^6/uL (3.85-5.65); White Blood Count 14.52 10^3/uL (3.29-11.43)
[2024-11-06 07:01] LABS: Alanine Aminotransferase 9 U/L (0-41); Albumin Level 3.4 g/dL (3.5-5.2); Alkaline Phosphatase 67 U/L (40-130); Anion Gap 14.0 (5-19); Aspartate Amino Transferase 11 U/L (0-40); Blood Urea Nitrogen 12 mg/dL (8-23); Calcium 8.6 mg/dL (8.5-10.5); Carbon Dioxide 23 mmol/L (22-29); Chloride 106 mmol/L (98-107); Creatinine Clr Calc Pharmacy 83.9115; Globulin 2.6 g/dL (1.3-4.6); Glucose 97 mg/dL (65-115); Osmolality Calculated 288 mOsm/kg (285-295); Potassium 4.0 mmol/L (3.5-5.1); Sodium 139 mmol/L (136-145); Total Protein 6.0 g/dL (6.6-8.7)
[2024-11-06 07:36] VITALS: BP 112/68; PULSE 59; RESP 16; TEMP 36.8; O2SAT 96
--- NOTE | 2024-11-06 08:59 | P.PN_ITS ---
Subjective 2 Subjective: the patient was seen in the morning and was having mild suprapubic pain that has been there since yesterday and currently a little better the patient is on suprapubic catheter and is working, no abd distention or worsening of pain since yesterday the patient did not reported any feeling of febrile illness or any chills or any nausea or vomiting Vitals/I&O/Wt Last Vital Signs Temp 98.2 F 11/06/24 07:36 Pulse 59 L 11/06/24 07:36 Resp 16 11/06/24 07:36 BP 112/68 11/06/24 07:36 Pulse Ox 96 11/06/24 07:36 O2 Del Method Room Air 11/06/24 07:36 11/05/24 11/06/24 11/06/24 22:59 06:59 14:59 Intake Total 240 / 2240 1271.25 / 3511.25 Output Total 1050 / 1600 900 / 2500 Balance -810 / 640 371.25 / 1011.25 Weight last 48 hrs Weight 67.041 kg Weight 66.497 kg Weight 77.111 kg Physical Exam 2 Narrative: General: Alert oriented x3, patient seen lying comfortably with suprapubic cath in place and the urine bag attached to the thigh HEENT: Normocephalic, atraumatic, EOMI, breathing at room air Cardio: Regular rate rhythm, normal S1-S2, no murmurs rubs gallops, JVD normal Respiratory: Good bilateral air entry, no wheezes no rhonchi appreciated GI: Abdomen soft, nontender, nondistended, normoactive bowel sounds present all 4 quadrants, mild suprapubic tenderness and no inguinal LN palpable Neuro: Cranial nerves II to XII intact, strength 5/5, sensation 5/5, no gross neurological deficit Behavior: Appropriate and cooperative Extremities: Pulses 2+, no edema, no cyanosis Skin: Visible skin intact, no rashes Data 11/06/24 05:41 11/06/24 05:41 Micro: Microbiology 11/05/24 09:43 Urine Culture - Preliminary Urine,Clean Catch Gram Negative Rods 11/05/24 10:22 Blood Culture - Preliminary Blood SPECIMEN COLLECTED 11/05/24 09:16 Blood Culture - Preliminary Blood SPECIMEN COLLECTED A&P Assessment and plan 1. Complication, suprapubic catheter obstruction: 2. Urinary retention: 3. Pyelonephritis, acute: 4. Complicated UTI (urinary tract infection): Plan: - continue ceftriaxone 1gm daily, urine cultures grew gram negative rods, follow sensitivity - monitor intake and output - monitor vitals - follow blood cultures final report currently no growth - FU with the urology at the time of discharge - continue hydration and monitor of renal functions and electrolytes with correction accordingly VTE: enoxaparin diet: cardiac diet PDMP PDMP Reviewed: Not Reviewed Attestations 2 Medical Necessity Statement*: Pineda Tijerina's hospital stay will be less than 2 midnights for managing complicated UTI with acute pyelonephritis Time Spent in Patient Care: 16 - 35 minutes (>than 50% of time sp ent in counselling and/or direct pt care on unit) . Other Attestations: Patient condition has been discussed at length with the patient/family, I have independently reviewed the chart labs imaging and diagnostics and EKG. the goals of care and code status with the patient/family/NOK/legal retail wireless sales representative, and documented accordingly. The patient/family has been informed about the current condition and further plan of care. Agreed with the plan of care and understood without any language barrier. This documentation was created by [employer] underwater hunter software. Every effort was made to ensure accuracy of underwater hunter. Any obvious errors or omissions should be clarified with the author of the document. Coding Level of Care Code 70649 Diagnoses Complication, suprapubic catheter obstruction T83.090A Encounter type: initial encounter Urinary retention R33.9 Pyelonephritis, acute N10 Complicated UTI (urinary tract infection) N39.0
--- NOTE | 2024-11-06 09:58 | PC.CHAP ---
Pastoral Care Encounter/Spiritual Assessment Type of Contact [] Declined order processing manager visit [] Patient/Family/Request visit [] Outpatient visit [] Follow-up visit [] Physician referral [] Code/Alert [x] Routine visit [] Staff referral [] Actively dying [] Patient sleeping [] Family support [] [] Out of room [] Palliative care [] [] Receiving care in room [] Pre-surgical visit [] Trauma [] Long length of stay [] ICU visit [] Other: Relational/Emotional Strength [] Patient feels connected with others/family/visitors/staff [] Distress [] Loneliness/isolation [] Abandonment Spirituality of Patient [x] Person of Maddy [] Attends Spiritism of their Maddy [x] Believes in Prayer [] Reads Bible or Muslim materials [] There are Spiritual issues to be addressed Distribution Operations Supervisor Interventions [x] Prayer [x] Active listening [] Non-anxious presence [] Spiritual/emotional support [] Crisis/trauma care [] Spiritual counseling [] Bereavement support [] Provided bereavement packet [x] Provided Bible/devotional materials [] Provided toy/stuffed animal, coloring book to patient or family member [] Provided Communion [] Anointing/[place] [] Salvation [x] Completed spiritual assessment [] Other: Impact on Illness or Injury [] Angry [] Fearful [] Anxious [] Often cries [] Exhaustion [] Unable to work [] Unable to attend temple [] Unable to walk/stand [] Unable to read [] Unable to drive [] Unable to eat/drink [] Unable to sleep [] Unable to be with family [] Patient intubated [] Other: Summary Time spent with patient 5 min
[2024-11-06 11:23] VITALS: BP 119/63; PULSE 60; RESP 16; TEMP 36.9; O2SAT 97
[2024-11-06] MEDS: cefTRIAXone 1,000 mg SDV 1000 MG IVP (11:30)
[2024-11-06 15:53] VITALS: BP 130/67; PULSE 56; RESP 17; TEMP 37.4; O2SAT 95
[2024-11-06 19:45] VITALS: BP 101/64; PULSE 62; RESP 14; TEMP 37.1; O2SAT 94
[2024-11-07] VITALS: BP 106/68; PULSE 61; RESP 16; TEMP 37.1; O2SAT 96
[2024-11-07 04:00] VITALS: BP 108/62; PULSE 72; RESP 14; TEMP 36.6; O2SAT 95
[2024-11-07 05:02] LABS: Hematocrit 39.5 % (37-53); Hemoglobin 13.20 g/dL (11.27-16.99); Mean Corpuscular HGB Conc 33.4 g/dL (30-55); Mean Corpuscular Hemoglobin 29.1 pg (27-33); Mean Corpuscular Volume 87.0 fl (82-101); Nucleated Red Blood Cells % 0 %; Platelet Count 241 10^3/cmm (157-399); Red Blood Count 4.54 10^6/uL (3.85-5.65); White Blood Count 10.01 10^3/uL (3.29-11.43)
[2024-11-07 05:26] LABS: Alanine Aminotransferase 10 U/L (0-41); Albumin Level 3.4 g/dL (3.5-5.2); Alkaline Phosphatase 90 U/L (40-130); Anion Gap 11.9 (5-19); Aspartate Amino Transferase 12 U/L (0-40); Blood Urea Nitrogen 11 mg/dL (8-23); Calcium 8.7 mg/dL (8.5-10.5); Carbon Dioxide 24 mmol/L (22-29); Chloride 107 mmol/L (98-107); Creatinine Clr Calc Pharmacy 94.2790; Globulin 2.9 g/dL (1.3-4.6); Glucose 109 mg/dL (65-115); Osmolality Calculated 288 mOsm/kg (285-295); Potassium 3.9 mmol/L (3.5-5.1); Sodium 139 mmol/L (136-145); Total Protein 6.3 g/dL (6.6-8.7)
[2024-11-07 07:06] VITALS: BP 126/76; PULSE 54; RESP 15; TEMP 37.2; O2SAT 93
--- NOTE | 2024-11-07 10:54 | P.DS_ITS ---
Discharge Providers Date of Admission: 11/05/24 10:22 Date of Discharge: November 06, 2024 Attending Provider at Admission: Telly Cifuentes MD Attending Provider at Discharge: Telly Cifuentes MD Diagnoses at Discharge Discharge Diagnosis 1. Complication, suprapubic catheter obstruction: 2. Urinary retention: 3. Pyelonephritis, acute: 4. Complicated UTI (urinary tract infection): Reason for Visit Reason for Visit: catheter Brief History: Pineda Tijerina is a 63 year old male with history of bladder outlet obstruction had suprapubic catheter placed approximately 8 weeks ago and was due for change tomorrow. Has had the catheter replaced in the past in clinic. Presents today because catheter became dislodged overnight and unable to evacuate his bladder. Subsequently is having distention and suprapubic abdominal pressure. No fevers, sweats, chills. Patient states he is having purulent discharge from the tip of his penis which is new for him as well. No radiation of pain into the flank, chest, epigastrium. No nausea, vomiting, diarrhea. the patient reported that he has some obstruction but not sure what was the reason exactly but mentioned may be it was his prostate? Hospital Course Hospital Course the patient had his suprapubic cath placed in the ED. was having increased WBCs and blood and urine cultures were taken. based on the previous urine cultures he is started on ceftriaxone. he passed adequate amount of urine post cath change. CT abd pelvis done and showed signs of complicated pyelonephritis and ureteritis as well. he also recieved 1L in the ER. The patient urine culture showed gram- negative rods. He has also previous history of UTI. He was kept on ceftriaxone 1 g daily and improved. To be discharged on bactrim for 7 days as per the culture sensitivity results, informed the patient after the culture sensitivity report and further tailoring of the antibiotics Physical Exam Narrative: General: Alert oriented x3, patient seen lying comfortably with suprapubic cath in place and the urine bag attached to the thigh HEENT: Normocephalic, atraumatic, EOMI, breathing at room air Cardio: Regular rate rhythm, normal S1-S2, no murmurs rubs gallops, JVD normal Respiratory: Good bilateral air entry, no wheezes no rhonchi appreciated GI: Abdomen soft, nontender, nondistended, normoactive bowel sounds present all 4 quadrants, no suprapubic tenderness and catheter in place Neuro: Cranial nerves II to XII intact, strength 5/5, sensation 5/5, no gross neurological deficit Behavior: Appropriate and cooperative Extremities: Pulses 2+, no edema, no cyanosis Skin: Visible skin intact, no rashes Discharge Data Studies Completed and Pending Completed Studies During Hospitalization Category Date Time Status CT abdomen pelvis w con* [id number] Stat Cat Scan 11/05/24 10:20 Completed Pending at discharge Category Date Time Status Blood Culture Stat Lab 11/05/24 10:22 Results Urine Culture Stat Lab 11/05/24 09:43 Results Radiology Impressions Abdomen/Pelvis CT 11/05/24 10:20 IMPRESSION: 1. Grossly stable exam with bilateral pelviectasis and urothelial enhancement seen throughout the bilateral renal collecting systems and ureters [id number] which is concerning for superimposed ureteritis/pyelitis. There is also a mildly striated enhancement appearance of the upper pole of the left kidney which suggests possibility for pyelonephritis. Recommend correlation with clinical presentation and laboratory values. 2. The urinary bladder is circumferentially severely thickened status post suprapubic catheterization. Superimposed cystitis is suspected. 3. Small amount of free fluid within the pelvis presumably reactive in etiology. Laboratory Results WBC 14.52 10^3/uL (3.29-11.43) H 11/06/24 05:41 RBC 4.42 10^6/uL (3.85-5.65) 11/06/24 05:41 Hgb 12.90 g/dL (11.27-16.99) 11/06/24 05:41 Hct 38.7 % (37-53) 11/06/24 05:41 MCV 87.6 fl (82-101) 11/06/24 05:41 MCH 29.2 pg (27-33) 11/06/24 05:41 MCHC 33.3 g/dL (30-55) 11/06/24 05:41 RDW 14.5 % (12.1-15.1) 11/06/24 05:41 Plt Count 236 10^3/cmm (157-399) 11/06/24 05:41 MPV 11.0 fL (7.4-10.4) H 11/06/24 05:41 Neut % (Auto) 80.5 % 11/06/24 05:41 Lymph % (Auto) 10.0 % 11/06/24 05:41 [place] % (Auto) 7.0 % 11/06/24 05:41 Eos % (Auto) 1.4 % 11/06/24 05:41 Baso % (Auto) 0.5 % 11/06/24 05:41 Neut # (Auto) 11.69 10^3/uL (1.8-7.7) H 11/06/24 05:41 Lymph # (Auto) 1.5 10^3/uL (0.8-4.8) 11/06/24 05:41 [place] # (Auto) 1.0 10^3/uL (0.2-0.9) H 11/06/24 05:41 Eos # (Auto) 0.2 10^3/uL (0.0-0.8) 11/06/24 05:41 Baso # (Auto) 0.1 10^3/uL (0.0-0.1) 11/06/24 05:41 Nucleated RBC % (auto) 0 % 11/06/24 05:41 Nucleated RBCs # 0.0 /100WBC 11/06/24 05:41 Sodium 139 mmol/L (136-145) 11/06/24 05:41 Potassium 4.0 mmol/L (3.5-5.1) 11/06/24 05:41 Chloride 106 mmol/L (98-107) 11/06/24 05:41 Carbon Dioxide 23 mmol/L (22-29) 11/06/24 05:41 Anion Gap 14.0 (5-19) 11/06/24 05:41 BUN 12 mg/dL (8-23) 11/06/24 05:41 Creatinine 0.9 mg/dL (0.7-1.2) 11/06/24 05:41 GFR Calculation 85.2 mL/min (90-130) L 11/06/24 05:41 Glucose 97 mg/dL (65-115) 11/06/24 05:41 Estimat Average Glucose 108 11/05/24 09:16 Hemoglobin A1c 5.4 % (4.0-6.0) 11/05/24 09:16 Calculated Osmolality 288 mOsm/kg (285-295) 11/06/24 05:41 Lactic Acid 1.6 mmol/L (0.5-2.2) 11/05/24 09:16 Calcium 8.6 mg/dL (8.5-10.5) 11/06/24 05:41 Total Bilirubin 0.6 mg/dL (0.15-1.2) 11/06/24 05:41 AST 11 U/L (0-40) 11/06/24 05:41 ALT 9 U/L (0-41) 11/06/24 05:41 Alkaline Phosphatase 67 U/L (40-130) 11/06/24 05:41 Total Protein 6.0 g/dL (6.6-8.7) L D 11/06/24 05:41 Albumin 3.4 g/dL (3.5-5.2) L 11/06/24 05:41 Globulin 2.6 g/dL (1.3-4.6) 11/06/24 05:41 Urine Color Yellow (Yellow) 11/05/24 09:43 Urine Appearance Turbid (CLEAR) A 11/05/24 09:43 Urine pH 7.0 (5-7) 11/05/24 09:43 Ur Specific [place] 1.008 (1.005-1.030) 11/05/24 09:43 Urine Protein 3+ (Negative) A 11/05/24 09:43 Urine Glucose (UA) Negative (Normal) 11/05/24 09:43 Urine Ketones Negative (Negative) 11/05/24 09:43 Urine Blood 2+ (Negative) A 11/05/24 09:43 Urine Nitrate Negative (Negative) 11/05/24 09:43 Urine Bilirubin Negative (Negative) 11/05/24 09:43 Urine Urobilinogen 0.2 mg/dL (Negative) 11/05/24 09:43 Ur Leukocyte Esterase 3+ (Negative) A 11/05/24 09:43 Urine RBC 51-100 /hpf (0-2) H 11/05/24 09:43 Urine WBC >100 /hpf (0-5) H 11/05/24 09:43 Ur Squamous Epith Cells 0-5 /hpf (0-5) 11/05/24 09:43 Amorphous Sediment Not Reportable 11/05/24 09:43 Urine Bacteria 4+ /hpf (NONE) H 11/05/24 09:43 Hyaline Casts 1.91 /lpf 11/05/24 09:43 C. trachomatis (PCR) Not detected (Negative) 11/05/24 09:43 N. gonorrhoeae (PCR) Not detected (Negative) 11/05/24 09:43 Vitals Last Vital Signs Temp 98.2 F 11/06/24 07:36 Pulse 59 L 11/06/24 07:36 Resp 16 11/06/24 07:36 BP 112/68 11/06/24 07:36 Pulse Ox 96 11/06/24 07:36 O2 Del Method Room Air 11/06/24 07:36 Discharge Plan Discharge Patient Disposition: Home Condition: Stable Prescriptions: New sulfamethoxazole-trimethoprim [Bactrim DS] 800-160 mg tablet 1 tab PO BID 7 Days Qty: 14 0RF acetaminophen 500 mg capsule 500 mg PO Q6H PRN (Reason: fever or pain) Qty: 14 0RF No Action No Known Home Medications Discharge Order = DC NOW: Discharge Order (Routine); Ordered 11/07/24 Ordered By: Telly Cifuentes Discharge Diet: Advance as tolerated and Usual diet Discharge Activity: Resume usual activity and Increase activity as tolerated Patient Instructions: Opioid Safety, Patient Portal & [facility] Instructions Discharge Attestations Time Spent in Discharge Care*: greater than 30 min Specific Discharge Activities: educating patient, educating and/or supporting family/caregiver, discussing with pcp/other providers, discussing with case fitter/social workers/dc planners, documenting/other paperwork and evaluating patient/reviewing data Status at Discharge: Cognitive status at discharge: cognitively intact , Behavioral status at discharge: cooperative , Functional status at discharge: independent ambulation , Overall status at discharge: patient is back to [facility] Quality Metrics Clinical Quality Measures [ No reported AMI, CVA or VTE this stay] Coding Level of Care Code Acute Code for Chg Fwd Diagnoses Complication, suprapubic catheter obstruction T83.090A Encounter type: initial encounter Urinary retention R33.9 Pyelonephritis, acute N10 Complicated UTI (urinary tract infection) N39.0
== END 2024-11-07 11:30 | disposition home or self-care (01) ==
LOC: ER 10:24 → MEDSURG 11:35
PROVIDERS: Admitting Provider Student in an Organized Health Care Education/Training Program; Emergency Provider General Practice; Visit Provider Student in an Organized Health Care Education/Training Program
DX: R33.9 Retention of urine, unspecified (principal); T83.090A Other mechanical complication of cystostomy catheter, initial encounter; Y73.8 Miscellaneous gastroenterology and urology devices associated with adverse incidents, not elsewhere classified; N10 Acute pyelonephritis; N39.0 Urinary tract infection, site not specified; Z87.448 Personal history of other diseases of urinary system; F17.200 Nicotine dependence, unspecified, uncomplicated
CPT/HCPCS: 36415; 74177; 80053; 81001; 83036; 83605; 85025; 87040; 87077; 87086; 87186; 87491; 87591; 96361; 96372; 96374; 99285; G0378; J0696; J1650; J7030; J7120; J9999

== ENCOUNTER 2025-01-03 09:57 | Outpatient (CLI) | payer BC, SELFPAY ==
--- NOTE | 2025-01-03 10:06 | CTR_ITS ---
PROCEDURE INFORMATION: Exam: CT Abdomen And Pelvis Without Contrast Exam date and time: 01/03/2025 10:27 AM Age: 64 years old Clinical indication: Abdominal pain; Epigastric; Prior surgery; Surgery date: 6+ months; Difficulty urinating, has a supra pubic catheter; Additional info: Flank pain/nephrolithiasis TECHNIQUE: Imaging protocol: Computed tomography of the abdomen and pelvis without contrast. Radiation optimization: All CT scans at this facility use at least one of these dose optimization techniques: automated exposure control; mA and/or kV adjustment per patient size (includes targeted exams where dose is matched to clinical indication); or iterative reconstruction. COMPARISON: CT abdomen pelvis w con* [id number] 11/05/2024 10:39 AM RADIATION DOSE METRICS: Total DLP (mGy-cm): 249.45 FINDINGS: Lungs: Visualized lung bases appear clear, without infiltrate or effusion. Liver: Liver appears unremarkable for unenhanced exam with tiny peripheral hypodense focus right lobe of the liver too small to characterize and likely benign finding. No significant abnormality. Gallbladder and biliary ducts: Normal. No calcified stones. No ductal dilation. Pancreas: Pancreas shows no significant abnormality. Spleen: Spleen appears unremarkable for unenhanced exam. No splenomegaly. Adrenal glands: Normal. No mass. Kidneys and ureters: Kidneys demonstrate component of chronic pelvocaliectasis, [id number]-[id number]-right, when correlated with previous exam. There is suggestion of mild chronic urothelial thickening within the collecting structures of the kidneys and ureters. No urinary tract stone is seen. No abnormal perinephric stranding. Stomach and bowel: No bowel obstruction. Sigmoid colon diverticulosis without findings of diverticulitis. Moderate stool volume in the colon. Fluid and gastric contents in a mildly distended stomach. Fluid content within a significant portion of small bowel. Appendix: No evidence of appendicitis. Intraperitoneal space: No free fluid or ascites. No free air. Vasculature: Mild aortoiliac atherosclerotic calcification. Unremarkable caliber of the abdominal aorta. Lymph nodes: No significant enlarged lymph nodes or lymphadenopathy. Urinary bladder: Suprapubic catheter with balloon is seen within the urinary bladder which is not well distended. Generalized urinary bladder wall thickening. Tiny amount of air in urinary bladder associated with suprapubic catheter. Reproductive: Unremarkable as visualized. Bones/joints: Mild spondylotic change within the lumbar and visualized thoracic spine. No acute osseous abnormality. Soft tissues: Chronic tiny fat containing umbilical hernia. CT/CT kidney stone [id number] IMPRESSION: 1. Suprapubic catheter with balloon is seen within the urinary bladder, which is not well distended and with generalized urinary bladder wall thickening. 2. Suggestion of chronic pelvocaliectasis, oysh-lozxyno-[id number]-right, of the kidneys with prior exam, along with component of chronic urothelial thickening. No urinary tract stone or abnormal perinephric stranding. 3. Sigmoid colon diverticulosis without diverticulitis. Moderate stool volume in the colon. 4. Fluid with some gastric contents within a mildly distended stomach and fluid within a significant portion of small bowel. No obstruction. Consider hypersecretory state or nonspecific gastroenteritis.
== END 2025-01-03 09:58 | disposition home or self-care (01) ==
LOC: RAD 10:02
PROVIDERS: PCP Nurse Practitioner Family; Visit Provider Nurse Practitioner Family
DX: R10.9 Unspecified abdominal pain (principal); N20.0 Calculus of kidney; N32.89 Other specified disorders of bladder; R93.89 Abnormal findings on diagnostic imaging of other specified body structures; K57.30 Diverticulosis of large intestine without perforation or abscess without bleeding; R93.3 Abnormal findings on diagnostic imaging of other parts of digestive tract; N28.89 Other specified disorders of kidney and ureter; I70.8 Atherosclerosis of other arteries; M47.896 Other spondylosis, lumbar region; M47.894 Other spondylosis, thoracic region; K42.9 Umbilical hernia without obstruction or gangrene; Z96.89 Presence of other specified functional implants
CPT/HCPCS: 74176

== ENCOUNTER 2025-02-12 07:26 | Outpatient (CLI) | payer BC, SELFPAY ==
--- NOTE | 2025-02-12 07:29 | US_ITS ---
WS: [id number] RENAL ULTRASOUND URINARY BLADDER ULTRASOUND HISTORY: NEUROGENIC BLADDER COMPARISON: Prior ultrasound 05/13/2020, CT 01/03/2025 and 11/05/2024 TECHNIQUE: 2-D and color Doppler imaging of the kidney submitted. Right kidney: 11.1 cm x 5.7 cm x 5.8 cm. Normal length kidney. Mild cortical thinning better appreciated on the recent CT. No solid mass. No calyceal dilatation. Extrarenal pelvis is slightly dilated as seen on prior CTs. Left kidney: 11.1 cm x 6.5 cm x 6.4 cm. Normal size kidney. Minimal calyceal dilatation. There is a large extrarenal pelvis. This has been previously noted. Aorta: Mild atherosclerosis and ectasia aorta. No aneurysm. Urinary Bladder: Urinary bladder is well distended. Ureteral jets are both identified entering the urinary bladder. Larger and more robust RIGHT ureteral jet. Very small LEFT ureteral jet. Patient has a suprapubic catheter within the urinary bladder. Bladder wall measures 3.8 mm. Prevoid urinary bladder volume: 511 mm. Post void urinary bladder volume: None. US/US renal BI w/PV bladder [id number] IMPRESSION: 1. Cortical thinning and atrophy RIGHT kidney. 2. Normal size LEFT kidney. 3. No calyceal dilatation RIGHT kidney. There is a small extrarenal pelvis nhan ntified. 4. Larger dilated prominent extrarenal pelvis on the LEFT with minimal calycea l dilatation. 5. Suprapubic catheter in the urinary bladder. 6. Marked thickening of the urinary bladder wall noted on the CT of 11/05/2024 is not as apparent by ultrasound. Bladder wall measures 3.8 mm.
== END 2025-02-12 07:27 | disposition home or self-care (01) ==
LOC: RAD 07:26
PROVIDERS: PCP Nurse Practitioner Family; Visit Provider Urology
DX: N31.9 Neuromuscular dysfunction of bladder, unspecified (principal); N28.89 Other specified disorders of kidney and ureter; N26.1 Atrophy of kidney (terminal); Z96.89 Presence of other specified functional implants; I70.0 Atherosclerosis of aorta; I77.819 Aortic ectasia, unspecified site
CPT/HCPCS: 76770; 76857